=== PATIENT | male | born 1965 | race African-American/Black ===

== ENCOUNTER 2019-09-10 10:35 | Outpatient (CLI) | payer OTHER ==
--- NOTE | 2019-09-10 11:00 | RAD ---
CERVICAL SPINE 4 VIEWS: HISTORY: Neck pain. COMPARISON: Comparison is made to cervical spine films of 07/17/2019. FINDINGS: Postoperative changes are again noted with anterior plate and screws transfixing C3 and C4 with inter body implant. Hardware position is unchanged. Implant is unchanged in position. Posterior alignmen t is preserved. Degenerative spurring and disk narrowing at the C5-6 and C6-7 levels again noted. No interval change . IMPRESSION: Stable degenerative and [id number] changes of cervical spine. POS: AH
== END 2019-09-10 10:36 | disposition home or self-care (01) ==
LOC: TBSIIMAG 10:35
PROVIDERS: ATTEND Neurological Surgery
DX: M54.2 Cervicalgia (principal); M47.812 Spondylosis without myelopathy or radiculopathy, cervical region; Z98.890 Other specified postprocedural states
CPT/HCPCS: 72040

== ENCOUNTER 2019-09-24 05:19 | Emergency (ER) | payer SELFPAY | END 2019-09-24 06:35 | disposition home or self-care (01) | LOC: ERS 05:19 | DX: M96.830 Postprocedural hemorrhage of a musculoskeletal structure following a musculoskeletal system procedure (principal); E11.9 Type 2 diabetes mellitus without complications; I10 Essential (primary) hypertension; N40.0 Benign prostatic hyperplasia without lower urinary tract symptoms; Z79.899 Other long term (current) drug therapy; Z79.84 Long term (current) use of oral hypoglycemic drugs | CPT/HCPCS: 99283 ==

== ENCOUNTER 2020-02-04 13:00 | Outpatient (CLI) | payer OTHER ==
[~2020-02-04 13:00] MED LIST: Magnevist 469MG/ML 20 ML VIAL ONE
[2020-02-04 14:04] LABS: Estimated GFR-MDRD - POC Greater than 90
--- NOTE | 2020-02-04 15:20 | MRI ---
MRI Lumbar Spine with and without IVcontrast: HISTORY: Lumbar stenosis with claudication. History of prior lumbar surgery COMPARISON: 04/29/2011 FINDINGS: The visualized retroperitoneal structures demonstrate a normal appearance. Conus medullaris is normal in morphology and terminates at the L1 level. Posterior fusion hardware L4-5 level again noted. Hardware again limits assessment of the neural fora luna. There has been interval postoperative changes at the L1-2 level with evidence of laminectomy defect. There is now enhancing soft tissue density seen posterior to the central canal at level of laminectomy defect with an irregular lower signal intensity area seen just posterior to the thecal sa c on postcontrast T1-weighted images. This lower signal intensity area measures 3.9 cm craniocaudal x1.4 cm AP x1.6 cm transverse. While these findings could be related to recent postoperative changes, infection and phlegmon with developing abscess collection cannot be excluded based on this exam. L1-2: As noted above, there has been interval postoperative changes at this level. Trace anterolisthe sis of L1 on L2 is again noted and mild disc space narrowing persists. There is a disc osteophyte complex at this level. There is severe central canal narrowing, but the degree of central canal narro wing is slightly improved from prior study. There is mass effect on the posterior aspect of the thecal sac due to the enhancing soft tissue and lower signal intensity area posterior to the thecal s ac at the L1-2 level. Severe left and moderate to severe right-sided neural foraminal narrowing persists. L2-3: Mild disc osteophyte complex is present at this level. Facet hypertrophic changes are seen. Gen eralized mild narrowing of the central spinal canal is present due to congenitally short pedicles. No significant neural foraminal narrowing is present. L3-4: Facet hypertrophic changes are present with mild disc osteophyte complex. There is resultant mi ld bilateral neural foraminal narrowing. There is generalized mild narrowing of the central spinal canal. Findings are similar to prior exam. L4-5: Laminectomy defect is again present at this level. There are facet hypertrophic changes noted. Bilateral neural foraminal narrowing is present, but the degree of neural foraminal narrowing is difficult to assess due to metallic susceptibility artifact from pedicular screws at this level. Cent ral spinal canal is patent. L5-S1: Loss of intervertebral disc height. Laminectomy defect is present at this level. There are pro minent facet hypertrophic changes. Mild broad-based disc osteophyte complex is present. Central spinal canal and right neural foramen appear patent. There is left foraminal narrowing although the d egree of foraminal narrowing is difficult to assess due to susceptibility artifact from pedicular screws. IMPRESSION: 1. Interval postoperative changes at the L1-2 level with laminectomy defect present. Enhancing soft t issue is present posterior to the thecal sac in the region of the laminectomy defect at this level with an irregular low signal intensity area seen just posterior to the thecal sac surrounded by the e nhancing soft tissue. While these findings could be related to recent postoperative changes, infection and phlegmon with developing abscess collection cannot be excluded based on this exam. 2. Persistent central canal and bilateral neural foraminal narrowing is present at the L1-2 level wit h severe central canal narrowing as well as severe right and moderate to severe left-sided neural foraminal narrowing. 3. Postoperative and degenerative changes seen throughout the remainder of the lumbar spine similar t o prior study.
== END 2020-02-04 13:01 | disposition home or self-care (01) ==
LOC: BICMRI 13:00
PROVIDERS: ATTEND Neurological Surgery
DX: M48.062 Spinal stenosis, lumbar region with neurogenic claudication (principal); M47.816 Spondylosis without myelopathy or radiculopathy, lumbar region; R93.7 Abnormal findings on diagnostic imaging of other parts of musculoskeletal system; Z98.890 Other specified postprocedural states
CPT/HCPCS: 72158; 82565; A9579

== ENCOUNTER 2020-02-20 09:28 | Emergency (ER) | payer SELFPAY ==
[2020-02-20 12:37] LABS: SARS-CoV-2 MS2 Positive; SARS-CoV-2 N Gene Positive; SARS-CoV-2 S Gene Positive; SARS-CoV-2 by NAA DETECTED (NotDetected); SARS-CoV-2 orf1ab Positive
== END 2020-02-20 10:20 | disposition home or self-care (01) ==
LOC: ERS 09:28
DX: U07.1 COVID-19 (principal); J45.909 Unspecified asthma, uncomplicated; E11.9 Type 2 diabetes mellitus without complications; I10 Essential (primary) hypertension; N40.0 Benign prostatic hyperplasia without lower urinary tract symptoms
CPT/HCPCS: 87635; 87804; 99283; U0003

== ENCOUNTER 2020-02-21 21:25 | Inpatient (IN) | payer OTHER, SELFPAY ==
[~2020-02-21 21:25] MED LIST changes: +Iopamidol-370 76% 500 ML 1 ML ONE; -Magnevist 469MG/ML 20 ML VIAL ONE
[2020-02-21] MEDS ORDERED: Azithromycin 500 MG VIAL ONE (22:00)
[2020-02-21] MEDS ORDERED: cefTRIAXone\\ROCEPHIN 2 GM VIAL ONE (22:00)
[2020-02-21 22:35] LABS: #Monocytes 0.3 thou/uL (0.11-0.59); #Neutrophils 3.8 thou/uL (1.40-6.50); %Basophils 0.2 % (0.0-1.0); %Eosinophils 0.2 % (0.0-10.0); %Monocytes 5.3 % (0.0-10.0); %Neutrophils 62.4 % (42.0-75.0); Hemoglobin 13.7 g/dL (14.0-18.0); Mean Corpuscular HGB CONC 33.8 g/dL (32.0-36.0); Mean Corpuscular Hemoglobin 30.3 pg (27.0-31.0); Mean Corpuscular Volume 89.8 fL (78.0-98.0); Mean Platelet Volume 7.2 fL (7.4-10.4); Platelet Count 239 thou/uL (130-400); RBC Distribution Width 12.6 % (11.5-14.5); Red Blood Cell (RBC) Count 4.52 mill/uL (4.70-6.10); White Blood Cell (WBC) Count 6.1 thou/uL (4.8-10.8)
[2020-02-21 22:52] LABS: ALT (SGPT) 41 U/L (8-55); AST (SGOT) 43 U/L (5-34); Alkaline Phosphatase 106 U/L (40-110); Anion Gap 15 mmol/L (10-20); BUN (Urea Nitrogen) 33 mg/dL (8.4-25.7); Bilirubin, Total 0.5 mg/dL (0.2-1.2); CK (CPK) 731 U/L (30-200); Calc. Creatinine Clearance 0 mL/min (70-130); Calcium 8.1 mg/dL (7.8-10.44); Carbon Dioxide 31 mmol/L (22-29); Chloride 95 mmol/L (98-107); Globulin 3.7 g/dL (2.4-3.5); Glucose 100 mg/dL (70-105); Potassium 3.5 mmol/L (3.5-5.1); Protein, Total 7.7 g/dL (6.0-8.3); Sodium 137 mmol/L (136-145)
--- NOTE | 2020-02-21 23:10 | RAD ---
EXAM: CHEST ONE VIEW HISTORY: Fever and cough COMPARISON: 07/23/2019 FINDINGS: The cardiac silhouette and pulmonary vasculature are within normal limits. Patchy parenchymal opacity is seen in the region of the lingula suggesting pneumonia. The right lung is clear. No other interval change. IMPRESSION: Pneumonia in the region of the lingula. Follow-up to complete resolution is recommended.
--- NOTE | 2020-02-21 23:12 | RAD ---
Exam: XR Hip Lt 2-3 View HISTORY: Injury to left hip after a fall. COMPARISON: None FINDINGS: No displaced fracture or dislocation is appreciated. Postoperative changes of the limited visualized lower lumbar spine are seen. Bony lateral masses secondary to fusion changes lateral lumbosacral region are seen. IMPRESSION: No acute fracture is seen. If patient's pain persists or if there is strong clinical concern for a le ft hip fracture, MRI versus CT left hip can be performed to evaluate for radiographically occult fracture.
--- NOTE | 2020-02-21 23:33 | CT ---
CT ANGIOGRAM THORAX WITH IV CONTRAST AND 3-D RECONSTRUCTIONS CLINICAL INDICATION: Covid positive. Wheezing, fever, hypoxia. COMPARISON: None FINDINGS: Pulmonary arteries: No filling defects are seen in the pulmonary arteries to suggest a pulmonary embo ajit. Aorta: The aorta is normal in caliber without evidence of an aortic dissection. Lungs: There are scattered patchy peripherally located groundglass densities within the lungs bilater ally greater in the upper lobes. No pleural effusion is seen. A 4 mm noncalcified pulmonary nodule seen in the anterior aspect right upper lobe (image 36, series 3 ) (. There is mild dependent atelectasis. Large airways appear patent. Mediastinum: Mild increase in number of mediastinal lymph nodes which is nonspecific could be related to reactive lymphadenopathy. Thyroid gland: Partially obscured due to artifact. Osseous structures: No suspicious lytic or sclerotic osseous lesion. Chest wall: No abnormality visualized. Upper abdomen: The limited visualized upper abdomen is within normal limits for phase of imaging. IMPRESSION: 1. Covid pneumonia. 2. No CT evidence of a pulmonary embolus. 3. Nonspecific 4 mm pulmonary nodule right upper lobe.
[2020-02-22 02:15] LABS: #Lymphocytes 1.2 thou/uL (1.20-3.40); #Monocytes 0.2 thou/uL (0.11-0.59); %Basophils 0.8 % (0.0-1.0); %Eosinophils 0.2 % (0.0-10.0); %Lymphocytes 21.8 % (21.0-51.0); %Monocytes 3.5 % (0.0-10.0); %Neutrophils 73.6 % (42.0-75.0); Hemoglobin 11.6 g/dL (14.0-18.0); Mean Corpuscular HGB CONC 34.3 g/dL (32.0-36.0); Mean Corpuscular Hemoglobin 30.5 pg (27.0-31.0); Mean Corpuscular Volume 89.1 fL (78.0-98.0); Mean Platelet Volume 7.1 fL (7.4-10.4); Platelet Count 214 thou/uL (130-400); RBC Distribution Width 12.4 % (11.5-14.5); White Blood Cell (WBC) Count 5.4 thou/uL (4.8-10.8)
--- NOTE | 2020-02-22 02:28 | PDOC.HHP ---
Hospitalist HPI - History of Present Illness SOB History of Present Illness: This is a 55-year-old male patient with past medical history of asthma, diabetes mellitus, hypertension and BPH who presents with worsening shortness of breath for about a week. He drove by day ago and had a Covid test returned positive. He notes that he has a couple of relatives on admission on account of Covid. While at home he noticed worsening shortness of breath and cough and weakness. He denies any chest pain he notes having become so weak he fell down while he was going to the urinal. It is unclear whether he actually had a syncopal event. His niece activated EMS and was brought in here for further treatment. EMS noted saturation 88% on room air improved to above 95 on 3 L oxygen. Blood pressure was 123/78 with heart rate 79. At presentation He was afebrile saturating at 100% on 2 L oxygen. BP was 146 /85. Labs showed mild anemia of 13.7, creatinine of 3.02 with no baseline on file. Lactic acid was 1.9. Chest x-ray was concerning for pneumonia in the region of the lingula, follow-up CT noted patchy scattered groundglass densities within the lungs bilaterally concerning for Covid. No pulmonary embolism was noted. A 4 mm nonspecific pulmonary nodule was seen on the right upper lobe. X-ray of his left hip revealed no acute fracture. He was started on Decadron, azithromycin and ceftriaxone. Hospitalist team consulted to admit Hospitalist ROS - Review of Systems Constitutional: reports: weakness, malaise. denies: fever, chills, sweats Respiratory: reports: cough, shortness of breath, SOB with excertion. denies: hemoptysis Cardiovascular: denies: chest pain, palpitations, orthopnea, paroxysmal noc. dyspnea Gastrointestinal: denies: nausea, vomiting, abdominal pain, diarrhea Genitourinary: denies: dysuria, frequency, incontinence, hematuria Musculoskeletal: reports: other (Left hip pain). denies: neck pain, shoulder pain, arm pain, back pain, hand pain, leg pain, foot pain Skin: denies: rash, lesions Neurological: denies: weakness, numbness, incoordination, change in speech All other systems reviewed; all pertinent +/- noted in HPI/Subj - Medication Medications: Medications: Currently refer to ambulatory order list. Allergies: No known drug allergies. Hospitalist History - Past Medical History Other Medical History: Asthma, diabetes mellitus, hypertension, BPH - Past Surgical History Other Surgical History: Back surgery - Family History Family History: reports: no pertinent history - Social History Smoking Status: Never smoker Alcohol: reports: None Living Situation: With Family Activity level: independent ambulation - Exam General Appearance: awake alert General - other findings: Looks anxious Eye: PERRL, anicteric sclera ENT: normocephalic atraumatic Neck: supple, symmetric, no JVD Heart: RRR, no murmur, no gallops Respiratory: CTAB, no wheezes, no rales, no ronchi Gastrointestinal: soft, non-tender, non-distended, normal bowel sounds Extremities: no cyanosis, no clubbing, no edema Neurological: cranial nerve grossly intact, no weakness, no focal deficits Psychiatric: normal affect, normal behavior, A&O x 3 Hospitalist Results - Labs Result Diagrams: 02/22/20 02:00 02/21/20 22:09 Lab results: WBC 5.4 thou/uL (4.8-10.8) 02/22/20 02:00 Hgb 11.6 g/dL (14.0-18.0) L 02/22/20 02:00 Hct 33.9 % (42.0-52.0) L 02/22/20 02:00 MCV 89.1 fL (78.0-98.0) 02/22/20 02:00 Plt Count 214 thou/uL (130-400) 02/22/20 02:00 Neutrophils % 73.6 % (42.0-75.0) 02/22/20 02:00 Sodium 137 mmol/L (136-145) 02/21/20 22:09 Potassium 3.5 mmol/L (3.5-5.1) 02/21/20 22:09 Chloride 95 mmol/L (98-107) L 02/21/20 22:09 Carbon Dioxide 31 mmol/L (22-29) H 02/21/20 22:09 BUN 33 mg/dL (8.4-25.7) H 02/21/20 22:09 Creatinine 3.02 mg/dL (0.7-1.3) H 02/21/20 22:09 Glucose 100 mg/dL (70-105) 02/21/20 22:09 Lactic Acid 1.9 mmol/L (0.5-2.2) 02/21/20 22:09 Calcium 8.1 mg/dL (7.8-10.44) 02/21/20 22:09 Total Bilirubin 0.5 mg/dL (0.2-1.2) 02/21/20 22:09 AST 43 U/L (5-34) H 02/21/20 22:09 ALT 41 U/L (8-55) 02/21/20 22:09 Alkaline Phosphatase 106 U/L (40-110) 02/21/20 22:09 Creatine Kinase 731 U/L (30-200) H 02/21/20 22:09 Serum Total Protein 7.7 g/dL (6.0-8.3) 02/21/20 22:09 Albumin 4.0 g/dL (3.5-5.0) 02/21/20 22:09 Hospitalist H&P A/P - Plan Plan: This is a 55-year-old male patient history of asthma, diabetes mellitus who presents with worsening shortness of breath after testing positive for Covid a day ago. Acute hypoxic respiratory failure In the setting of Covid, possible COPD Continue oxygen therapy Pulmonary consult if deteriorates. Pneumonia due to Covid We will start steroids, antibiotics Check D-dimer CRP ferritin CanT have remdesivir if it were not function Plasma Continue close monitoring Possible committee acquired pneumonia Continue azithromycin and ceftriaxone for now CKD Possible JOSEFINA CKD No baseline values We will gently hydrate Check BMP in a.m. Nephrology consult if worsens. Diabetes mellitus Standard correctional insulin Glucose monitoring. Hypertension Home blood pressure medications once verified. VT prophylaxisHeparin CODE STATUSfull code
[2020-02-22] MEDS ORDERED: Sodium Chloride 0.9% 1,000 ML IV SCH (02:30)
[2020-02-22 02:43] LABS: Anion Gap 18 mmol/L (10-20); BUN (Urea Nitrogen) 27 mg/dL (8.4-25.7); Calc. Creatinine Clearance 0 mL/min (70-130); Calcium 6.9 mg/dL (7.8-10.44); Carbon Dioxide 25 mmol/L (22-29); Chloride 101 mmol/L (98-107); Glucose 92 mg/dL (70-105); Sodium 141 mmol/L (136-145)
[2020-02-22] MEDS ORDERED: Dextrose 5% in Water 1,000 ML IV PRN (02:51)
[2020-02-22] MEDS ORDERED: Dextrose 50% Abboject 50 ML SYRINGE SLOW IVP PRN (02:51)
[2020-02-22] MEDS ORDERED: Albuterol 200 PUFF (6.7GM INHALER) INH PRN (07:48)
[2020-02-22] MEDS ORDERED: Albuterol 200 PUFF (6.7GM INHALER) ONE (07:49)
[2020-02-22] MEDS ORDERED: Enoxaparin Sodium 40 MG/0.4 ML SYRINGE ONE (08:41)
[2020-02-22] MEDS ORDERED: Potassium Chloride 20 MEQ TAB PO SCH (09:00)
[2020-02-22] MEDS ORDERED: Dexamethasone 20 MG/5 ML VIAL SLOW IVP SCH (09:00)
[2020-02-22] MEDS ORDERED: Enoxaparin Sodium 40 MG/0.4 ML SYRINGE SC SCH (09:00)
[2020-02-22] MEDS: Sodium Chloride 0.9% 1,000 ML IV SCH ×2 (09:33→20:48)
[2020-02-22] MEDS ORDERED: Potassium Chloride 20 MEQ TAB ONE (09:36)
[2020-02-22] MEDS: Enoxaparin Sodium 30 MG/0.3 ML SYRINGE SC SCH ×2 (09:58→20:48)
[2020-02-22] MEDS: Ascorbic Acid 500 mg Chewable Tablet PO SCH (10:02)
[2020-02-22] MEDS: Cholecalciferol (Vitamin D3) 400 UNITS TAB PO SCH (10:02)
[2020-02-22] MEDS: Zinc Sulfate 220 MG CAP PO SCH (10:02)
[2020-02-22] MEDS ORDERED: HumaLOG 300 UNITS/3 ML VIAL ONE (10:09)
[2020-02-22] MEDS ORDERED: hydrALAZINE 20 MG/ML VIAL ONE ×2 (10:11→14:39)
[2020-02-22] MEDS: HumaLOG 300 UNITS/3 ML VIAL SC PRN (10:21)
[2020-02-22] MEDS: hydrALAZINE 20 MG/ML VIAL SLOW IVP PRN ×2 (10:26→14:44)
[2020-02-22] MEDS ORDERED: Acetaminophen 325 MG TAB PO PRN (12:49)
[2020-02-22] MEDS ORDERED: HYDROcodone/Acetaminophen 5/325 mg Tablet ONE (13:30)
[2020-02-22] MEDS: HYDROcodone/Acetaminophen 5/325 mg Tablet PO PRN ×3 (13:33→22:20)
--- NOTE | 2020-02-22 14:09 | PDOC.BPN ---
- Brief Progress Note Patient was seen examined at bedside. The patient is a pleasant 55 years old -[place] gentleman who has significant past medical histories of asthma, diabetes, hypertension, BPH, who presented to ED with complaint of short of breath for about 1 weeks. He was tested positive for Covid on February 20, 2020. Upon arrival, he was found hypoxic's. His oxygen improved with O2 supplements on 3 L. Patient had been started on Decadron and other supportive therapy. He is not a candidate for remdesivir due to his renal function. Convalescent plasma has been ordered. Continue to wean O2 as tolerated. We will change Lovenox to twice daily. Add vitamin C/D/Zinc.
[2020-02-22] MEDS: Albuterol 200 PUFF (6.7GM INHALER) INH SCH ×3 (17:35→20:48)
[2020-02-22 19:22] VITALS: BMI 38.0
[2020-02-22] MEDS: cefTRIAXone\\ROCEPHIN 1 GM in Sodium Chloride 0.9% 100 ML IVPB SCH (20:47)
[2020-02-22] MEDS: Azithromycin 500 MG in Sodium Chloride 0.9% 250 ML 250 ML IVPB SCH (22:12)
[2020-02-23] MEDS: Albuterol 200 PUFF (6.7GM INHALER) INH SCH ×6 (02:52→21:17)
[2020-02-23] MEDS: HYDROcodone/Acetaminophen 5/325 mg Tablet PO PRN ×2 (05:32→10:38)
[2020-02-23 07:09] LABS: #Lymphocytes 1.7 thou/uL (1.20-3.40); #Monocytes 0.3 thou/uL (0.11-0.59); #Neutrophils 6.9 thou/uL (1.40-6.50); %Basophils 0.2 % (0.0-1.0); %Eosinophils 0.2 % (0.0-10.0); %Lymphocytes 19.4 % (21.0-51.0); %Monocytes 3.4 % (0.0-10.0); %Neutrophils 76.7 % (42.0-75.0); Mean Corpuscular HGB CONC 33.1 g/dL (32.0-36.0); Mean Corpuscular Hemoglobin 29.4 pg (27.0-31.0); Mean Corpuscular Volume 88.9 fL (78.0-98.0); Mean Platelet Volume 7.5 fL (7.4-10.4); Platelet Count 253 thou/uL (130-400); RBC Distribution Width 12.4 % (11.5-14.5); Red Blood Cell (RBC) Count 4.42 mill/uL (4.70-6.10)
[2020-02-23 07:16] LABS: Anion Gap 11 mmol/L (10-20); BUN (Urea Nitrogen) 13 mg/dL (8.4-25.7); CRP (Inflammatory) 3.77 mg/dL (= or < 0.5); Calc. Creatinine Clearance 160 mL/min (70-130); Calcium 7.2 mg/dL (7.8-10.44); Carbon Dioxide 26 mmol/L (22-29); Chloride 104 mmol/L (98-107); Glucose 99 mg/dL (70-105); Potassium 2.9 mmol/L (3.5-5.1); Sodium 138 mmol/L (136-145)
[2020-02-23] MEDS ORDERED: Potassium Chloride 20 MEQ TAB PO SCH (07:45)
[2020-02-23] MEDS ORDERED: Potassium Chloride 40 MEQ in Sodium Chloride 0.9% 250 ML 250 ML IVPB SCH (08:00)
[2020-02-23] MEDS: Ascorbic Acid 500 mg Chewable Tablet PO SCH (08:23)
[2020-02-23] MEDS: Zinc Sulfate 220 MG CAP PO SCH (08:23)
[2020-02-23] MEDS: Enoxaparin Sodium 30 MG/0.3 ML SYRINGE SC SCH ×2 (08:23→20:05)
[2020-02-23] MEDS: Cholecalciferol (Vitamin D3) 400 UNITS TAB PO SCH (08:37)
[2020-02-23] MEDS: Sodium Chloride 0.9% 1,000 ML IV SCH (09:56)
[2020-02-23] MEDS ORDERED: Acetaminophen 500 MG TAB PO SCH (11:00)
--- NOTE | 2020-02-23 17:10 | PDOC.HOSPP ---
- Subjective Subjective: still having intermittent fever, feeling bad with nausea. sat still ok on room air. CRP is trending down - Objective Vital Signs & Weight: Vital Signs (12 hours) Temp Pulse Resp BP Pulse Ox 02/23/20 11:49 100.2 F H 02/23/20 11:19 101.3 F H 02/23/20 11:00 102.3 F H 112 H 20 147/83 H 96 02/23/20 08:00 100.1 F H 107 H 20 146/82 H 92 L Weight Weight 272 lb 7.861 oz I&O: 02/22/20 02/23/20 02/24/20 06:59 06:59 06:59 Intake Total 1000 0 Balance 1000 0 Result Diagrams: 02/23/20 06:22 02/23/20 06:22 Additional Labs: Accuchecks 02/23/20 02/23/20 02/23/20 16:06 11:06 05:38 POC Glucose 121 H 151 H 128 H 02/22/20 20:54 POC Glucose 133 H Hospitalist ROS - Medication Medications: Active Medications Generic Name Dose Route Start Last Admin Trade Name Freq PRN Reason Stop Dose Admin Hydrocodone Bitart/Acetaminophen 1 tab 02/22/20 12:49 02/23/20 10:38 Hydrocodone/Acetaminophen 5/325 Mg Tablet PO 1 tab Q4H PRN Administration Moderate to Severe Pain (6-10) Albuterol Sulfate 2 puff 02/22/20 10:30 02/23/20 14:15 Albuterol 200 Puff (6.7gm Inhaler) INH 2 puff [id number] ELIOT Administration Albuterol Sulfate 2 puff 02/22/20 07:48 02/22/20 08:01 Albuterol 200 Puff (6.7gm Inhaler) INH 2 puff Q4H PRN Administration SOB &/or Wheezing Ascorbic Acid 1,000 mg 02/22/20 09:00 02/23/20 08:23 Ascorbic Acid 500 Mg Chewable Tablet PO 1,000 mg DAILY ELIOT Administration Cholecalciferol 400 units 02/22/20 09:00 02/23/20 08:37 Cholecalciferol (Vitamin D3) 400 Units Tab PO 400 units DAILY ELIOT Administration Enoxaparin Sodium 30 mg 02/22/20 09:00 02/23/20 08:23 Enoxaparin Sodium 30 Mg/0.3 Ml Syringe SC 30 mg BID ELIOT Administration Hydralazine HCl 10 mg 02/22/20 09:59 02/22/20 14:44 Hydralazine 20 Mg/Ml Vial SLOW IVP 10 mg Q4H PRN Administration Persistent BP Elevations Dexamethasone 8 mg/ Sodium 50.8 mls @ 101.6 mls/hr 02/22/20 09:00 02/22/20 09:18 Chloride IVPB 50.8 mls DAILY ELIOT Administration Ceftriaxone Sodium 1 gm/ 100 mls @ 200 mls/hr 02/22/20 20:00 02/22/20 20:47 Sodium Chloride IVPB 100 mls Q24HR ELIOT Administration Azithromycin 500 mg/ Sodium 250 mls @ 250 mls/hr 02/22/20 21:00 02/22/20 22:12 Chloride IVPB 250 mls Q24HR ELIOT Administration Sodium Chloride 1,000 mls @ 75 mls/hr 02/22/20 08:48 02/23/20 09:56 Normal Saline 0.9% IV 1,000 mls .[id number] ELIOT Administration Insulin Human Lispro 0 units 02/22/20 02:51 02/22/20 10:21 Humalog 300 Units/3 Ml Vial SC 2 unit .MILD SLIDING SCALE PRN Administration Mild Correctional Scale Zinc Sulfate 220 mg 02/22/20 09:00 02/23/20 08:23 Zinc Sulfate 220 Mg Cap PO 220 mg DAILY ELIOT Administration - Exam General Appearance: NAD Eye: PERRL ENT: normocephalic atraumatic Neck: supple Heart: RRR Respiratory: rhonchi Gastrointestinal: soft, non-tender Extremities: no cyanosis Skin: normal turgor Neurological: cranial nerve grossly intact Musculoskeletal: normal tone Psychiatric: normal affect, normal behavior, A&O x 3 Hosp A/P - Plan This is a 55-year-old male patient history of HTN, dyslipidemia, diabetes who presented with worsening shortness of breath after testing positive for Covid a day ago prior to admission Acute hypoxic respiratory failure d/t COVID-19 PNA --cont supportive cares. O2 supplement --cont Decadron. Vit C/D/Zinc. s/p convalescent plasma COVID-19 Pneumonia --cont empiric IV abx. mgt as above DM2 --BG stable. Hold metformin for now d/t renal function and in case contrast study is needed --cont ISS Dyslipidemia --cont statin HTN, essential --resume Norvasc/HCTZ Hypokalemia --replaced JOSEFINA - resolved --renal function normalized with IVF DVT ppx: Lovenox sq BID GI ppx: PPI Code Status: Full Anticipated Dispo: Home when medically stable.
[2020-02-23] MEDS: Ondansetron PF 4 MG/2 ML Vial IVP PRN (17:33)
[2020-02-23] MEDS: Ibuprofen 600 MG TAB PO PRN (18:01)
[2020-02-23] MEDS: Gabapentin 300 MG CAP PO SCH (20:04)
[2020-02-23] MEDS: cefTRIAXone\\ROCEPHIN 1 GM in Sodium Chloride 0.9% 100 ML IVPB SCH (20:04)
[2020-02-23] MEDS: Zolpidem Tartrate 5 MG TAB PO SCH (20:05)
[2020-02-23] MEDS: Acetaminophen 325 MG TAB PO PRN (20:05)
[2020-02-23] MEDS: Azithromycin 500 MG in Sodium Chloride 0.9% 250 ML 250 ML IVPB SCH (21:16)
[2020-02-24] MEDS: Sodium Chloride 0.9% 1,000 ML IV SCH ×2 (00:06→12:46)
[2020-02-24] MEDS: Albuterol 200 PUFF (6.7GM INHALER) INH SCH ×6 (03:20→22:28)
[2020-02-24] MEDS: Acetaminophen 325 MG TAB PO PRN ×3 (03:21→22:42)
[2020-02-24 07:33] LABS: Anion Gap 18 mmol/L (10-20); BUN (Urea Nitrogen) 12 mg/dL (8.4-25.7); Calc. Creatinine Clearance 159 mL/min (70-130); Calcium 8.4 mg/dL (7.8-10.44); Carbon Dioxide 21 mmol/L (22-29); Chloride 103 mmol/L (98-107); Glucose 127 mg/dL (70-105); Magnesium 1.8 mg/dL (1.6-2.6); Potassium 4.8 mmol/L (3.5-5.1); Sodium 137 mmol/L (136-145)
[2020-02-24] MEDS: Finasteride 5 MG TAB PO SCH (08:44)
[2020-02-24] MEDS: Hydrochlorothiazide 25 MG TAB PO SCH (08:44)
[2020-02-24] MEDS: Ascorbic Acid 500 mg Chewable Tablet PO SCH (08:44)
[2020-02-24] MEDS: Gabapentin 300 MG CAP PO SCH ×3 (08:44→20:49)
[2020-02-24] MEDS: Amlodipine 10 MG TAB PO SCH (08:46)
[2020-02-24] MEDS: Enoxaparin Sodium 30 MG/0.3 ML SYRINGE SC SCH ×2 (08:46→20:55)
[2020-02-24] MEDS: HYDROcodone/Acetaminophen 5/325 mg Tablet PO PRN (08:47)
[2020-02-24] MEDS: Cholecalciferol (Vitamin D3) 400 UNITS TAB PO SCH (08:49)
[2020-02-24 08:51] LABS: #Lymphocytes 0.8 thou/uL (1.20-3.40); #Monocytes 0.3 thou/uL (0.11-0.59); #Neutrophils 6.7 thou/uL (1.40-6.50); %Eosinophils 0.1 % (0.0-10.0); %Lymphocytes 9.7 % (21.0-51.0); %Neutrophils 86.2 % (42.0-75.0); Hemoglobin 14.1 g/dL (14.0-18.0); Mean Corpuscular HGB CONC 32.6 g/dL (32.0-36.0); Mean Corpuscular Hemoglobin 28.9 pg (27.0-31.0); Mean Corpuscular Volume 88.7 fL (78.0-98.0); Mean Platelet Volume 7.3 fL (7.4-10.4); Platelet Count 252 thou/uL (130-400); RBC Distribution Width 12.6 % (11.5-14.5); Red Blood Cell (RBC) Count 4.88 mill/uL (4.70-6.10); White Blood Cell (WBC) Count 7.8 thou/uL (4.8-10.8)
[2020-02-24] MEDS: Zinc Sulfate 220 MG CAP PO SCH (09:03)
[2020-02-24] MEDS: Ondansetron PF 4 MG/2 ML Vial IVP PRN ×3 (09:05→22:41)
[2020-02-24] MEDS ORDERED: clonazePAM 0.5 MG TAB PO PRN (10:49)
--- NOTE | 2020-02-24 17:57 | PDOC.HOSPP ---
- Subjective Subjective: still having fever. not feeling well. current wean down to room air - Objective Vital Signs & Weight: Vital Signs (12 hours) Temp Pulse Resp BP BP Pulse Ox 02/24/20 16:16 102.9 F H 02/24/20 16:02 102.9 F H 124 H 18 143/81 H 95 02/24/20 11:57 99.6 F 102 H 16 142/99 H 96 02/24/20 08:46 89 134/83 02/24/20 08:00 99 02/24/20 07:55 99.1 F 89 16 134/83 99 Weight Weight 272 lb 7.861 oz Most Recent Monitor Data Heart Rate from ECG 101 NIBP 162/102 I&O: 02/23/20 02/24/20 02/25/20 06:59 06:59 06:59 Intake Total 1000 1090 Balance 1000 1090 Result Diagrams: 02/24/20 08:37 02/24/20 06:21 Additional Labs: Accuchecks 02/24/20 02/24/20 02/24/20 15:56 11:51 04:33 POC Glucose 131 H 114 H 134 H 02/23/20 20:11 POC Glucose 204 H Radiology Reviewed by me: Yes EKG Reviewed by me: Yes Hospitalist ROS - Medication Medications: Active Medications Generic Name Dose Route Start Last Admin Trade Name Freq PRN Reason Stop Dose Admin Acetaminophen 650 mg 02/23/20 10:54 02/24/20 16:16 Acetaminophen 325 Mg Tab PO 650 mg Q6H PRN Administration Mild-Moderate Pain (1-5) Hydrocodone Bitart/Acetaminophen 1 tab 02/22/20 12:49 02/24/20 08:47 Hydrocodone/Acetaminophen 5/325 Mg Tablet PO 1 tab Q4H PRN Administration Moderate to Severe Pain (6-10) Albuterol Sulfate 2 puff 02/22/20 10:30 02/24/20 14:16 Albuterol 200 Puff (6.7gm Inhaler) INH 2 puff [id number] ELIOT Administration Albuterol Sulfate 2 puff 02/22/20 07:48 02/22/20 08:01 Albuterol 200 Puff (6.7gm Inhaler) INH 2 puff Q4H PRN Administration SOB &/or Wheezing Amlodipine Besylate 10 mg 02/24/20 09:00 02/24/20 08:46 Amlodipine 10 Mg Tab PO 10 mg DAILY ELIOT Administration Ascorbic Acid 1,000 mg 02/22/20 09:00 02/24/20 08:44 Ascorbic Acid 500 Mg Chewable Tablet PO 1,000 mg DAILY ELIOT Administration Cholecalciferol 400 units 02/22/20 09:00 02/24/20 08:49 Cholecalciferol (Vitamin D3) 400 Units Tab PO 400 units DAILY ELIOT Administration Clonazepam 0.5 mg 02/24/20 10:49 02/24/20 12:46 Clonazepam 0.5 Mg Tab PO 0.5 mg BIDPRN PRN Administration Anxiety/Agitation Dexamethasone 8 mg 02/24/20 18:00 02/24/20 16:16 Dexamethasone 4 Mg/Ml Vial SLOW IVP 8 mg 1800 ELIOT Administration Enoxaparin Sodium 30 mg 02/22/20 09:00 02/24/20 08:46 Enoxaparin Sodium 30 Mg/0.3 Ml Syringe SC 30 mg BID ELIOT Administration Finasteride 5 mg 02/24/20 09:00 02/24/20 08:44 Finasteride 5 Mg Tab PO 5 mg DAILY ELIOT Administration Gabapentin 300 mg 02/23/20 21:00 02/24/20 16:15 Gabapentin 300 Mg Cap PO 300 mg TID ELIOT Administration Hydralazine HCl 10 mg 02/22/20 09:59 02/22/20 14:44 Hydralazine 20 Mg/Ml Vial SLOW IVP 10 mg Q4H PRN Administration Persistent BP Elevations Hydrochlorothiazide 12.5 mg 02/24/20 09:00 02/24/20 08:44 Hydrochlorothiazide 25 Mg Tab PO 12.5 mg DAILY ELIOT Administration Ceftriaxone Sodium 1 gm/ 100 mls @ 200 mls/hr 02/22/20 20:00 02/23/20 20:04 Sodium Chloride IVPB 100 mls Q24HR ELIOT Administration Azithromycin 500 mg/ Sodium 250 mls @ 250 mls/hr 02/22/20 21:00 02/23/20 21:16 Chloride IVPB 250 mls Q24HR ELIOT Administration Sodium Chloride 1,000 mls @ 75 mls/hr 02/22/20 08:48 02/24/20 12:46 Normal Saline 0.9% IV 1,000 mls .[id number] ELIOT Administration Ibuprofen 600 mg 02/23/20 10:58 01/04/21 18:01 Ibuprofen 600 Mg Tab PO 600 mg Q6H PRN Administration Fever > 101 Insulin Human Lispro 0 units 02/22/20 02:51 02/22/20 10:21 Humalog 300 Units/3 Ml Vial SC 2 unit .MILD SLIDING SCALE PRN Administration Mild Correctional Scale Ondansetron HCl 4 mg 02/23/20 16:44 02/24/20 17:32 Ondansetron Pf 4 Mg/2 Ml Vial IVP 4 mg Q6H PRN Administration Nausea/Vomiting Zinc Sulfate 220 mg 02/22/20 09:00 02/24/20 09:03 Zinc Sulfate 220 Mg Cap PO 220 mg DAILY ELIOT Administration Zolpidem Tartrate 10 mg 02/23/20 21:00 02/23/20 20:05 Zolpidem Tartrate 5 Mg Tab PO 10 mg HS ELIOT Administration - Exam General Appearance: NAD Eye: PERRL ENT: normocephalic atraumatic Neck: supple Heart: RRR, no murmur Respiratory: rhonchi Gastrointestinal: soft Extremities: no cyanosis Skin: normal turgor Neurological: cranial nerve grossly intact Musculoskeletal: normal tone Hosp A/P - Plan This is a 55-year-old male patient history of HTN, dyslipidemia, diabetes who presented with worsening shortness of breath after testing positive for Covid a day ago prior to admission Acute hypoxic respiratory failure d/t COVID-19 PNA --cont supportive cares. O2 supplement --cont Decadron. Vit C/D/Zinc. s/p convalescent plasma --cont empiric IV abx COVID-19 Pneumonia --cont empiric IV abx. mgt as above DM2 --BG stable. Hold metformin for now d/t renal function and in case contrast study is needed --cont ISS Dyslipidemia --cont statin HTN, essential --resume Norvasc/HCTZ Hypokalemia --replaced JOSEFINA - resolved --renal function normalized with IVF DVT ppx: Lovenox sq BID GI ppx: PPI Code Status: Full Anticipated Dispo: Home when medically stable.
[2020-02-24] MEDS ORDERED: Dexamethasone 4 mg/ml Vial SLOW IVP SCH (18:00)
[2020-02-24] MEDS: cefTRIAXone\\ROCEPHIN 1 GM in Sodium Chloride 0.9% 100 ML IVPB SCH (20:46)
[2020-02-24] MEDS: Zolpidem Tartrate 5 MG TAB PO SCH (20:48)
[2020-02-24] MEDS: Dexamethasone 4 mg/ml Vial SLOW IVP SCH (20:48)
[2020-02-24] MEDS: Atorvastatin Calcium 20 MG TAB PO SCH (20:48)
[2020-02-24] MEDS: Azithromycin 500 MG in Sodium Chloride 0.9% 250 ML 250 ML IVPB SCH (22:28)
[2020-02-25] MEDS: Albuterol 200 PUFF (6.7GM INHALER) INH SCH ×6 (02:57→22:01)
[2020-02-25] MEDS: Sodium Chloride 0.9% 1,000 ML IV SCH (02:57)
[2020-02-25] MEDS: HumaLOG 300 UNITS/3 ML VIAL SC PRN ×3 (06:09→16:37)
[2020-02-25] MEDS: Acetaminophen 325 MG TAB PO PRN (06:15)
[2020-02-25 06:33] LABS: #Lymphocytes 0.7 thou/uL (1.20-3.40); #Monocytes 0.3 thou/uL (0.11-0.59); #Neutrophils 7.2 thou/uL (1.40-6.50); %Basophils 0.3 % (0.0-1.0); %Lymphocytes 8.2 % (21.0-51.0); %Neutrophils 87.5 % (42.0-75.0); Hemoglobin 14.3 g/dL (14.0-18.0); Mean Corpuscular HGB CONC 33.7 g/dL (32.0-36.0); Mean Corpuscular Hemoglobin 29.9 pg (27.0-31.0); Mean Corpuscular Volume 88.7 fL (78.0-98.0); Mean Platelet Volume 7.7 fL (7.4-10.4); Platelet Count 242 thou/uL (130-400); RBC Distribution Width 12.8 % (11.5-14.5); Red Blood Cell (RBC) Count 4.77 mill/uL (4.70-6.10); White Blood Cell (WBC) Count 8.2 thou/uL (4.8-10.8)
[2020-02-25 07:00] LABS: Anion Gap 18 mmol/L (10-20); BUN (Urea Nitrogen) 14 mg/dL (8.4-25.7); Calc. Creatinine Clearance 142 mL/min (70-130); Calcium 8.6 mg/dL (7.8-10.44); Carbon Dioxide 20 mmol/L (22-29); Chloride 101 mmol/L (98-107); Glucose 158 mg/dL (70-105); Potassium 4.4 mmol/L (3.5-5.1); Sodium 135 mmol/L (136-145)
[2020-02-25] MEDS: Cholecalciferol (Vitamin D3) 400 UNITS TAB PO SCH (09:50)
[2020-02-25] MEDS: Hydrochlorothiazide 25 MG TAB PO SCH (09:50)
[2020-02-25] MEDS: Enoxaparin Sodium 30 MG/0.3 ML SYRINGE SC SCH ×2 (09:50→20:44)
[2020-02-25] MEDS: Ascorbic Acid 500 mg Chewable Tablet PO SCH (09:51)
[2020-02-25] MEDS: Amlodipine 10 MG TAB PO SCH (09:51)
[2020-02-25] MEDS: Finasteride 5 MG TAB PO SCH (09:51)
[2020-02-25] MEDS: Gabapentin 300 MG CAP PO SCH ×3 (09:51→20:39)
[2020-02-25] MEDS: Dexamethasone 4 mg/ml Vial SLOW IVP SCH ×2 (09:52→20:38)
[2020-02-25] MEDS: Zinc Sulfate 220 MG CAP PO SCH (09:52)
[2020-02-25] MEDS: HYDROcodone/Acetaminophen 5/325 mg Tablet PO PRN ×2 (13:01→19:14)
[2020-02-25] MEDS ORDERED: Lorazepam 1 MG TAB PO SCH (14:30)
--- NOTE | 2020-02-25 17:25 | PDOC.HOSPP ---
- Subjective Subjective: still feeling bad. sob with exertion. CRP is still trending up. Oxygen wean off to room air - Objective Vital Signs & Weight: Vital Signs (12 hours) Temp Pulse Resp BP Pulse Ox 02/25/20 08:00 97 02/25/20 07:59 99.0 F 99 15 132/89 97 02/25/20 06:27 99 F Weight Weight 272 lb 7.861 oz Most Recent Monitor Data Heart Rate from ECG 101 NIBP 162/102 I&O: 02/24/20 02/25/20 02/26/20 06:59 06:59 06:59 Intake Total 1090 Balance 1090 Result Diagrams: 02/25/20 06:24 02/25/20 06:24 Additional Labs: Accuchecks 02/25/20 02/25/20 02/25/20 15:26 11:49 06:11 POC Glucose 199 H 167 H 158 H 02/24/20 20:41 POC Glucose 182 H Radiology Reviewed by me: Yes EKG Reviewed by me: Yes Hospitalist ROS - Medication Medications: Active Medications Generic Name Dose Route Start Last Admin Trade Name Freq PRN Reason Stop Dose Admin Acetaminophen 650 mg 02/23/20 10:54 02/25/20 06:15 Acetaminophen 325 Mg Tab PO 650 mg Q6H PRN Administration Mild-Moderate Pain (1-5) Hydrocodone Bitart/Acetaminophen 1 tab 02/22/20 12:49 02/25/20 13:01 Hydrocodone/Acetaminophen 5/325 Mg Tablet PO 1 tab Q4H PRN Administration Moderate to Severe Pain (6-10) Albuterol Sulfate 2 puff 02/22/20 10:30 02/25/20 14:27 Albuterol 200 Puff (6.7gm Inhaler) INH 2 puff [id number] ELIOT Administration Albuterol Sulfate 2 puff 02/22/20 07:48 02/22/20 08:01 Albuterol 200 Puff (6.7gm Inhaler) INH 2 puff Q4H PRN Administration SOB &/or Wheezing Amlodipine Besylate 10 mg 02/24/20 09:00 02/25/20 09:51 Amlodipine 10 Mg Tab PO 10 mg DAILY ELIOT Administration Ascorbic Acid 1,000 mg 02/22/20 09:00 02/25/20 09:51 Ascorbic Acid 500 Mg Chewable Tablet PO 1,000 mg DAILY ELIOT Administration Atorvastatin Calcium 20 mg 02/24/20 21:00 02/24/20 20:48 Atorvastatin Calcium 20 Mg Tab PO 20 mg HS ELIOT Administration Cholecalciferol 400 units 02/22/20 09:00 02/25/20 09:50 Cholecalciferol (Vitamin D3) 400 Units Tab PO 400 units DAILY ELIOT Administration Clonazepam 0.5 mg 02/24/20 10:49 02/24/20 12:46 Clonazepam 0.5 Mg Tab PO 0.5 mg BIDPRN PRN Administration Anxiety/Agitation Dexamethasone 6 mg 02/24/20 21:00 02/25/20 09:52 Dexamethasone 4 Mg/Ml Vial SLOW IVP 6 mg BID ELIOT Administration Enoxaparin Sodium 30 mg 02/22/20 09:00 02/25/20 09:50 Enoxaparin Sodium 30 Mg/0.3 Ml Syringe SC 30 mg BID ELIOT Administration Finasteride 5 mg 02/24/20 09:00 02/25/20 09:51 Finasteride 5 Mg Tab PO 5 mg DAILY ELIOT Administration Gabapentin 300 mg 02/23/20 21:00 02/25/20 14:23 Gabapentin 300 Mg Cap PO 300 mg TID ELIOT Administration Hydralazine HCl 10 mg 02/22/20 09:59 02/22/20 14:44 Hydralazine 20 Mg/Ml Vial SLOW IVP 10 mg Q4H PRN Administration Persistent BP Elevations Hydrochlorothiazide 12.5 mg 02/24/20 09:00 02/25/20 09:50 Hydrochlorothiazide 25 Mg Tab PO 12.5 mg DAILY ELIOT Administration Ceftriaxone Sodium 1 gm/ 100 mls @ 200 mls/hr 02/22/20 20:00 02/24/20 20:46 Sodium Chloride IVPB 100 mls Q24HR ELIOT Administration Azithromycin 500 mg/ Sodium 250 mls @ 250 mls/hr 02/22/20 21:00 02/24/20 22:28 Chloride IVPB 250 mls Q24HR ELIOT Administration Ibuprofen 600 mg 02/23/20 10:58 02/23/20 18:01 Ibuprofen 600 Mg Tab PO 600 mg Q6H PRN Administration Fever > 101 Insulin Human Lispro 0 units 02/22/20 02:51 02/25/20 16:37 Humalog 300 Units/3 Ml Vial SC 2 unit .MILD SLIDING SCALE PRN Administration Mild Correctional Scale Ondansetron HCl 4 mg 02/23/20 16:44 02/24/20 22:41 Ondansetron Pf 4 Mg/2 Ml Vial IVP 4 mg Q6H PRN Administration Nausea/Vomiting Zinc Sulfate 220 mg 02/22/20 09:00 02/25/20 09:52 Zinc Sulfate 220 Mg Cap PO Not Given DAILY ELIOT Zolpidem Tartrate 10 mg 02/23/20 21:00 02/24/20 20:48 Zolpidem Tartrate 5 Mg Tab PO 10 mg HS ELIOT Administration - Exam General Appearance: NAD Eye: PERRL ENT: normocephalic atraumatic Neck: supple Heart: RRR Respiratory: CTAB Gastrointestinal: soft, non-tender Extremities: no cyanosis Skin: normal turgor Neurological: cranial nerve grossly intact Musculoskeletal: normal tone Psychiatric: normal affect, normal behavior, A&O x 3 Hosp A/P - Plan This is a 55-year-old male patient history of HTN, dyslipidemia, diabetes who presented with worsening shortness of breath after testing positive for Covid a day ago prior to admission Acute hypoxic respiratory failure d/t COVID-19 PNA --cont supportive cares. O2 supplement --cont Decadron. Vit C/D/Zinc. s/p convalescent plasma --cont empiric IV abx. Follow anti-inflammatory marker COVID-19 Pneumonia --cont empiric IV abx. mgt as above DM2 --BG stable. Hold metformin for now d/t renal function and in case contrast kaitlyn dy is needed --cont ISS Dyslipidemia --cont statin HTN, essential --resume Norvasc/HCTZ Hypokalemia --replaced JOSEFINA - resolved --renal function normalized with IVF DVT ppx: Lovenox sq BID GI ppx: PPI Code Status: Full Anticipated Dispo: Home when medically stable.
[2020-02-25] MEDS: cefTRIAXone\\ROCEPHIN 1 GM in Sodium Chloride 0.9% 100 ML IVPB SCH (19:13)
[2020-02-25] MEDS: Atorvastatin Calcium 20 MG TAB PO SCH (20:38)
[2020-02-25] MEDS: Zolpidem Tartrate 5 MG TAB PO SCH (20:38)
[2020-02-25] MEDS: Azithromycin 500 MG in Sodium Chloride 0.9% 250 ML 250 ML IVPB SCH (20:39)
[2020-02-26] MEDS: Albuterol 200 PUFF (6.7GM INHALER) INH SCH ×6 (03:37→21:12)
[2020-02-26 06:38] LABS: #Monocytes 0.7 thou/uL (0.11-0.59); #Neutrophils 10.5 thou/uL (1.40-6.50); %Basophils 0.3 % (0.0-1.0); %Eosinophils 0.1 % (0.0-10.0); %Lymphocytes 7.9 % (21.0-51.0); %Monocytes 5.6 % (0.0-10.0); %Neutrophils 86.2 % (42.0-75.0); Hemoglobin 13.6 g/dL (14.0-18.0); Mean Corpuscular HGB CONC 32.9 g/dL (32.0-36.0); Mean Corpuscular Hemoglobin 29.1 pg (27.0-31.0); Mean Corpuscular Volume 88.5 fL (78.0-98.0); Mean Platelet Volume 8.1 fL (7.4-10.4); Platelet Count 331 thou/uL (130-400); RBC Distribution Width 12.6 % (11.5-14.5); Red Blood Cell (RBC) Count 4.66 mill/uL (4.70-6.10); White Blood Cell (WBC) Count 12.2 thou/uL (4.8-10.8)
[2020-02-26 06:47] LABS: Anion Gap 16 mmol/L (10-20); BUN (Urea Nitrogen) 16 mg/dL (8.4-25.7); CRP (Inflammatory) 10.01 mg/dL (= or < 0.5); Calc. Creatinine Clearance 143 mL/min (70-130); Calcium 8.7 mg/dL (7.8-10.44); Carbon Dioxide 23 mmol/L (22-29); Chloride 98 mmol/L (98-107); Glucose 135 mg/dL (70-105); Potassium 4.3 mmol/L (3.5-5.1); Sodium 133 mmol/L (136-145)
[2020-02-26] MEDS: Ascorbic Acid 500 mg Chewable Tablet PO SCH (08:14)
[2020-02-26] MEDS: Zinc Sulfate 220 MG CAP PO SCH (08:14)
[2020-02-26] MEDS: Amlodipine 10 MG TAB PO SCH (08:14)
[2020-02-26] MEDS: Gabapentin 300 MG CAP PO SCH ×3 (08:14→21:11)
[2020-02-26] MEDS: Finasteride 5 MG TAB PO SCH (08:14)
[2020-02-26] MEDS: Enoxaparin Sodium 30 MG/0.3 ML SYRINGE SC SCH (08:15)
[2020-02-26] MEDS: Dexamethasone 4 mg/ml Vial SLOW IVP SCH ×2 (08:15→21:12)
[2020-02-26] MEDS: Cholecalciferol (Vitamin D3) 400 UNITS TAB PO SCH (08:15)
[2020-02-26] MEDS: Hydrochlorothiazide 25 MG TAB PO SCH (08:15)
[2020-02-26] MEDS ORDERED: Ondansetron PF 4 MG/2 ML Vial IVP SCH (09:45)
[2020-02-26] MEDS: Lorazepam 0.5 MG TAB PO PRN (17:00)
[2020-02-26] MEDS: Ibuprofen 600 MG TAB PO PRN (17:00)
--- NOTE | 2020-02-26 17:05 | PDOC.HOSPP ---
- Subjective Subjective: Pt has multiple complaints. headache, nausea, restless. His sat currently 90 on room air. no fever. CRP is now trending down. - Objective Vital Signs & Weight: Vital Signs (12 hours) Temp Pulse Resp BP BP BP Pulse Ox 02/26/20 08:14 107 H 110/73 02/26/20 08:00 92 L 02/26/20 07:42 98.6 F 121 H 24 H 127/89 91 L 02/26/20 05:50 99.1 F 104 H 20 151/79 H 92 L Weight Weight 272 lb 7.861 oz Most Recent Monitor Data Heart Rate from ECG 101 NIBP 162/102 Result Diagrams: 02/26/20 05:42 02/26/20 05:42 Additional Labs: Accuchecks 02/26/20 02/25/20 05:59 21:07 POC Glucose 149 H 193 H Radiology Reviewed by me: Yes Hospitalist ROS - Medication Medications: Active Medications Generic Name Dose Route Start Last Admin Trade Name Freq PRN Reason Stop Dose Admin Acetaminophen 650 mg 02/23/20 10:54 02/25/20 06:15 Acetaminophen 325 Mg Tab PO 650 mg Q6H PRN Administration Mild-Moderate Pain (1-5) Hydrocodone Bitart/Acetaminophen 1 tab 02/22/20 12:49 02/25/20 19:14 Hydrocodone/Acetaminophen 5/325 Mg Tablet PO 1 tab Q4H PRN Administration Moderate to Severe Pain (6-10) Albuterol Sulfate 2 puff 02/22/20 10:30 02/26/20 17:00 Albuterol 200 Puff (6.7gm Inhaler) INH 2 puff [id number] ELIOT Administration Albuterol Sulfate 2 puff 02/22/20 07:48 02/22/20 08:01 Albuterol 200 Puff (6.7gm Inhaler) INH 2 puff Q4H PRN Administration SOB &/or Wheezing Amlodipine Besylate 10 mg 02/24/20 09:00 02/26/20 08:14 Amlodipine 10 Mg Tab PO 10 mg DAILY ELIOT Administration Ascorbic Acid 1,000 mg 02/22/20 09:00 02/26/20 08:14 Ascorbic Acid 500 Mg Chewable Tablet PO 1,000 mg DAILY ELIOT Administration Atorvastatin Calcium 20 mg 02/24/20 21:00 02/25/20 20:38 Atorvastatin Calcium 20 Mg Tab PO 20 mg HS ELIOT Administration Cholecalciferol 400 units 02/22/20 09:00 02/26/20 08:15 Cholecalciferol (Vitamin D3) 400 Units Tab PO 400 units DAILY ELIOT Administration Dexamethasone 6 mg 02/24/20 21:00 02/26/20 08:15 Dexamethasone 4 Mg/Ml Vial SLOW IVP 6 mg BID ELIOT Administration Finasteride 5 mg 02/24/20 09:00 02/26/20 08:14 Finasteride 5 Mg Tab PO 5 mg DAILY ELIOT Administration Gabapentin 300 mg 02/23/20 21:00 02/26/20 15:15 Gabapentin 300 Mg Cap PO 300 mg TID ELIOT Administration Hydralazine HCl 10 mg 02/22/20 09:59 02/22/20 14:44 Hydralazine 20 Mg/Ml Vial SLOW IVP 10 mg Q4H PRN Administration Persistent BP Elevations Hydrochlorothiazide 12.5 mg 02/24/20 09:00 02/26/20 08:15 Hydrochlorothiazide 25 Mg Tab PO 12.5 mg DAILY ELIOT Administration Ibuprofen 600 mg 02/23/20 10:58 02/26/20 17:00 Ibuprofen 600 Mg Tab PO 600 mg Q6H PRN Administration Fever > 101 Insulin Human Lispro 0 units 02/22/20 02:51 02/25/20 16:37 Humalog 300 Units/3 Ml Vial SC 2 unit .MILD SLIDING SCALE PRN Administration Mild Correctional Scale Lorazepam 0.5 mg 02/26/20 09:39 02/26/20 17:00 Lorazepam 0.5 Mg Tab PO 0.5 mg Q4H PRN Administration Anxiety Ondansetron HCl 4 mg 02/23/20 16:44 02/24/20 22:41 Ondansetron Pf 4 Mg/2 Ml Vial IVP 4 mg Q6H PRN Administration Nausea/Vomiting Zinc Sulfate 220 mg 02/22/20 09:00 02/26/20 08:14 Zinc Sulfate 220 Mg Cap PO 220 mg DAILY ELIOT Administration Zolpidem Tartrate 10 mg 02/23/20 21:00 02/25/20 20:38 Zolpidem Tartrate 5 Mg Tab PO 10 mg HS ELIOT Administration - Exam General Appearance: NAD Eye: PERRL ENT: normocephalic atraumatic Neck: supple Heart: RRR, no murmur Respiratory: CTAB, no wheezes Gastrointestinal: soft, non-tender Extremities: no cyanosis, no clubbing, no edema Skin: normal turgor Neurological: cranial nerve grossly intact Musculoskeletal: normal tone Psychiatric: normal affect, normal behavior, A&O x 3 Hosp A/P - Plan This is a 55-year-old male patient history of HTN, dyslipidemia, diabetes who presented with worsening shortness of breath after testing positive for Covid a day ago prior to admission Acute hypoxic respiratory failure d/t COVID-19 PNA --cont supportive cares. O2 supplement --cont Decadron. Vit C/D/Zinc. s/p convalescent plasma --D/C IV abx. Marker starts to trend down. Slightly tachycardic. cont Lovenox BID for DVT ppx COVID-19 Pneumonia --cont empiric IV abx. mgt as above DM2 --BG stable. Hold metformin for now d/t renal function and in case contrast study is needed --cont ISS Dyslipidemia --cont statin HTN, essential --resume Norvasc/HCTZ Hypokalemia --replaced JOSEFINA - resolved --renal function normalized with IVF DVT ppx: Lovenox sq BID GI ppx: PPI Code Status: Full Anticipated Dispo: Home when medically stable.
[2020-02-26] MEDS: Enoxaparin Sodium 40 MG/0.4 ML SYRINGE SC SCH (21:11)
[2020-02-26] MEDS: Zolpidem Tartrate 5 MG TAB PO SCH (21:12)
[2020-02-26] MEDS: Atorvastatin Calcium 20 MG TAB PO SCH (21:12)
[2020-02-26] MEDS: Acetaminophen 325 MG TAB PO PRN (21:24)
[2020-02-27] MEDS: Albuterol 200 PUFF (6.7GM INHALER) INH SCH ×6 (03:00→20:24)
[2020-02-27 06:34] LABS: Hemoglobin 14.9 g/dL (14.0-18.0); Mean Corpuscular HGB CONC 33.4 g/dL (32.0-36.0); Mean Corpuscular Hemoglobin 29.5 pg (27.0-31.0); Mean Corpuscular Volume 88.5 fL (78.0-98.0); Mean Platelet Volume 7.3 fL (7.4-10.4); Platelet Count 369 thou/uL (130-400); RBC Distribution Width 12.6 % (11.5-14.5); Red Blood Cell (RBC) Count 5.05 mill/uL (4.70-6.10); White Blood Cell (WBC) Count 14.4 thou/uL (4.8-10.8)
[2020-02-27 06:44] LABS: Anion Gap 17 mmol/L (10-20); BUN (Urea Nitrogen) 20 mg/dL (8.4-25.7); CRP (Inflammatory) 16.67 mg/dL (= or < 0.5); Calc. Creatinine Clearance 160 mL/min (70-130); Calcium 8.9 mg/dL (7.8-10.44); Carbon Dioxide 24 mmol/L (22-29); Chloride 98 mmol/L (98-107); Glucose 165 mg/dL (70-105); Potassium 4.7 mmol/L (3.5-5.1); Sodium 134 mmol/L (136-145)
[2020-02-27 08:01] LABS: Band 14 % (5-11); Lymphocytes 7 % (21-51); MDiff Complete? YES; Monocytes 3 % (0-10); Neutrophil 76 % (42-75); Platelet Morphology Comment Appears Adequate; Polychromasia SLIGHT = 2-3 cells (100X) (0-2/hpf)
[2020-02-27] MEDS: Gabapentin 300 MG CAP PO SCH ×3 (08:16→20:23)
[2020-02-27] MEDS: Hydrochlorothiazide 25 MG TAB PO SCH (08:16)
[2020-02-27] MEDS: Enoxaparin Sodium 40 MG/0.4 ML SYRINGE SC SCH ×2 (08:16→20:22)
[2020-02-27] MEDS: Cholecalciferol (Vitamin D3) 400 UNITS TAB PO SCH (08:16)
[2020-02-27] MEDS: Amlodipine 10 MG TAB PO SCH (08:16)
[2020-02-27] MEDS: Finasteride 5 MG TAB PO SCH (08:16)
[2020-02-27] MEDS: Zinc Sulfate 220 MG CAP PO SCH (08:17)
[2020-02-27] MEDS: HYDROcodone/Acetaminophen 5/325 mg Tablet PO PRN (08:17)
[2020-02-27] MEDS: Dexamethasone 4 mg/ml Vial SLOW IVP SCH ×2 (08:17→20:24)
[2020-02-27] MEDS: Ascorbic Acid 500 mg Chewable Tablet PO SCH (08:17)
[2020-02-27] MEDS: Lorazepam 0.5 MG TAB PO PRN (13:49)
[2020-02-27] MEDS: Acetaminophen 325 MG TAB PO PRN ×2 (13:49→20:25)
[2020-02-27] MEDS: Ondansetron PF 4 MG/2 ML Vial IVP PRN (13:50)
--- NOTE | 2020-02-27 18:12 | PDOC.HOSPP ---
- Subjective Subjective: He is getting more hypoxic overnight and placed on 2 L. CRP continue to trend upward. Still very dyspneic with minimal exertion. - Objective Vital Signs & Weight: Vital Signs (12 hours) Temp Pulse Resp BP BP BP Pulse Ox 02/27/20 08:16 100 142/92 H 02/27/20 08:00 94 L 02/27/20 07:28 98.8 F 100 23 H 142/91 H 02/27/20 06:54 98.3 F 102 H 18 123/80 84 L Weight Weight 272 lb 7.861 oz Most Recent Monitor Data Heart Rate from ECG 101 NIBP 162/102 I&O: 02/26/20 02/27/20 02/28/20 06:59 06:59 06:59 Intake Total 650 Balance 650 Result Diagrams: 02/27/20 06:08 02/27/20 06:08 Additional Labs: Accuchecks 02/27/20 02/27/20 02/27/20 16:42 11:47 05:47 POC Glucose 224 H 178 H 172 H 02/26/20 02/26/20 16:44 11:27 POC Glucose 180 H 147 H Radiology Reviewed by me: Yes EKG Reviewed by me: Yes Hospitalist ROS - Medication Medications: Active Medications Generic Name Dose Route Start Last Admin Trade Name Freq PRN Reason Stop Dose Admin Acetaminophen 650 mg 02/23/20 10:54 02/27/20 13:49 Acetaminophen 325 Mg Tab PO 650 mg Q6H PRN Administration Mild-Moderate Pain (1-5) Hydrocodone Bitart/Acetaminophen 1 tab 02/22/20 12:49 02/27/20 08:17 Hydrocodone/Acetaminophen 5/325 Mg Tablet PO 1 tab Q4H PRN Administration Moderate to Severe Pain (6-10) Albuterol Sulfate 2 puff 02/22/20 10:30 02/27/20 17:28 Albuterol 200 Puff (6.7gm Inhaler) INH 2 puff [id number] ELIOT Administration Albuterol Sulfate 2 puff 02/22/20 07:48 02/22/20 08:01 Albuterol 200 Puff (6.7gm Inhaler) INH 2 puff Q4H PRN Administration SOB &/or Wheezing Amlodipine Besylate 10 mg 02/24/20 09:00 01/08/21 08:16 Amlodipine 10 Mg Tab PO 10 mg DAILY ELIOT Administration Ascorbic Acid 1,000 mg 02/22/20 09:00 02/27/20 08:17 Ascorbic Acid 500 Mg Chewable Tablet PO 1,000 mg DAILY ELIOT Administration Atorvastatin Calcium 20 mg 02/24/20 21:00 02/26/20 21:12 Atorvastatin Calcium 20 Mg Tab PO 20 mg HS ELIOT Administration Cholecalciferol 400 units 02/22/20 09:00 02/27/20 08:16 Cholecalciferol (Vitamin D3) 400 Units Tab PO 400 units DAILY ELIOT Administration Dexamethasone 6 mg 02/24/20 21:00 02/27/20 08:17 Dexamethasone 4 Mg/Ml Vial SLOW IVP 6 mg BID ELIOT Administration Enoxaparin Sodium 40 mg 02/26/20 21:00 02/27/20 08:16 Enoxaparin Sodium 40 Mg/0.4 Ml Syringe SC 40 mg BID ELIOT Administration Finasteride 5 mg 02/24/20 09:00 02/27/20 08:16 Finasteride 5 Mg Tab PO 5 mg DAILY ELIOT Administration Gabapentin 300 mg 02/23/20 21:00 02/27/20 13:49 Gabapentin 300 Mg Cap PO 300 mg TID ELIOT Administration Hydralazine HCl 10 mg 02/22/20 09:59 02/22/20 14:44 Hydralazine 20 Mg/Ml Vial SLOW IVP 10 mg Q4H PRN Administration Persistent BP Elevations Hydrochlorothiazide 12.5 mg 02/24/20 09:00 02/27/20 08:16 Hydrochlorothiazide 25 Mg Tab PO 12.5 mg DAILY ELIOT Administration Ibuprofen 600 mg 02/23/20 10:58 02/26/20 17:00 Ibuprofen 600 Mg Tab PO 600 mg Q6H PRN Administration Fever > 101 Insulin Human Lispro 0 units 02/22/20 02:51 02/25/20 16:37 Humalog 300 Units/3 Ml Vial SC 2 unit .MILD SLIDING SCALE PRN Administration Mild Correctional Scale Lorazepam 0.5 mg 02/26/20 09:39 02/27/20 13:49 Lorazepam 0.5 Mg Tab PO 0.5 mg Q4H PRN Administration Anxiety Ondansetron HCl 4 mg 02/23/20 16:44 02/27/20 13:50 Ondansetron Pf 4 Mg/2 Ml Vial IVP 4 mg Q6H PRN Administration Nausea/Vomiting Zinc Sulfate 220 mg 02/22/20 09:00 02/27/20 08:17 Zinc Sulfate 220 Mg Cap PO Not Given DAILY ELIOT Zolpidem Tartrate 10 mg 02/23/20 21:00 02/26/20 21:12 Zolpidem Tartrate 5 Mg Tab PO 10 mg HS ELIOT Administration - Exam General Appearance: NAD Eye: PERRL ENT: normocephalic atraumatic Neck: supple Heart: RRR Respiratory: CTAB, no wheezes Gastrointestinal: soft, non-tender Extremities: no cyanosis Skin: normal turgor Neurological: cranial nerve grossly intact, normal sensation to touch Hosp A/P - Plan This is a 55-year-old male patient history of HTN, dyslipidemia, diabetes who presented with worsening shortness of breath after testing positive for Covid a day ago prior to admission Acute hypoxic respiratory failure d/t COVID-19 PNA --cont supportive cares. O2 supplement --cont Decadron. Vit C/D/Zinc. s/p convalescent plasma --cont Lovenox BID for DVT ppx. Abx was discontinued --pt is not stable to discharge at this time, appears decompensated overnight. Will observe him over the weekend. COVID-19 Pneumonia --cont empiric IV abx. mgt as above DM2 --BG stable. Hold metformin for now d/t renal function and in case contrast study is needed --cont ISS Dyslipidemia --cont statin HTN, essential --resume Norvasc/HCTZ Hypokalemia --replaced JOSEFINA - resolved --renal function normalized with IVF DVT ppx: Lovenox sq BID GI ppx: PPI Code Status: Full Anticipated Dispo: Home when medically stable.
[2020-02-27] MEDS: Atorvastatin Calcium 20 MG TAB PO SCH (20:24)
[2020-02-27] MEDS: Zolpidem Tartrate 5 MG TAB PO SCH (20:24)
[2020-02-28] MEDS: HumaLOG 300 UNITS/3 ML VIAL SC PRN ×3 (05:10→17:50)
[2020-02-28] MEDS: Albuterol 200 PUFF (6.7GM INHALER) INH SCH ×6 (05:10→20:24)
[2020-02-28] MEDS: Enoxaparin Sodium 40 MG/0.4 ML SYRINGE SC SCH ×2 (08:27→20:20)
[2020-02-28] MEDS: Amlodipine 10 MG TAB PO SCH (08:28)
[2020-02-28] MEDS: Ascorbic Acid 500 mg Chewable Tablet PO SCH (08:28)
[2020-02-28] MEDS: Finasteride 5 MG TAB PO SCH (08:28)
[2020-02-28] MEDS: Hydrochlorothiazide 25 MG TAB PO SCH (08:28)
[2020-02-28] MEDS: Gabapentin 300 MG CAP PO SCH ×3 (08:28→20:21)
[2020-02-28] MEDS: Cholecalciferol (Vitamin D3) 400 UNITS TAB PO SCH (08:28)
[2020-02-28] MEDS: Zinc Sulfate 220 MG CAP PO SCH (08:28)
[2020-02-28] MEDS: Dexamethasone 4 mg/ml Vial SLOW IVP SCH ×2 (08:29→20:20)
[2020-02-28] MEDS: Ibuprofen 600 MG TAB PO PRN (08:31)
[2020-02-28] MEDS: Ondansetron PF 4 MG/2 ML Vial IVP PRN ×2 (08:31→17:50)
[2020-02-28 10:56] LABS: Hemoglobin 13.9 g/dL (14.0-18.0); Mean Corpuscular HGB CONC 33.7 g/dL (32.0-36.0); Mean Corpuscular Hemoglobin 30.1 pg (27.0-31.0); Mean Corpuscular Volume 89.4 fL (78.0-98.0); Mean Platelet Volume 7.8 fL (7.4-10.4); Platelet Count 405 thou/uL (130-400); RBC Distribution Width 12.4 % (11.5-14.5); Red Blood Cell (RBC) Count 4.62 mill/uL (4.70-6.10); White Blood Cell (WBC) Count 16.5 thou/uL (4.8-10.8)
[2020-02-28 11:03] LABS: Anion Gap 16 mmol/L (10-20); BUN (Urea Nitrogen) 18 mg/dL (8.4-25.7); CRP (Inflammatory) 11.06 mg/dL (= or < 0.5); Calc. Creatinine Clearance 170 mL/min (70-130); Calcium 8.6 mg/dL (7.8-10.44); Carbon Dioxide 21 mmol/L (22-29); Chloride 97 mmol/L (98-107); Glucose 227 mg/dL (70-105); Potassium 4.3 mmol/L (3.5-5.1); Sodium 130 mmol/L (136-145)
[2020-02-28 11:37] LABS: Band 5 % (5-11); Lymphocytes 5 % (21-51); MDiff Complete? YES; Monocytes 6 % (0-10); Neutrophil 84 % (42-75); Platelet Morphology Comment Appears Adequate; RBC Morphology Normal
--- NOTE | 2020-02-28 15:08 | PDOC.HOSPP ---
- Subjective Encounter Date: 02/28/20 Encounter Time: 12:25 Subjective: is ambulating in room on nasal canula feels weak, no new symptoms - Objective Vital Signs & Weight: Vital Signs (12 hours) Temp Pulse Resp BP Pulse Ox 02/28/20 08:28 105 H 02/28/20 08:00 98.9 F 105 H 22 H 146/93 H 92 L 02/28/20 04:00 98.9 F 104 H 18 148/90 H 94 L Weight Weight 272 lb 7.861 oz Most Recent Monitor Data Heart Rate from ECG 101 NIBP 162/102 I&O: 02/27/20 02/28/20 02/29/20 06:59 06:59 06:59 Intake Total 650 Balance 650 Result Diagrams: 02/28/20 10:40 02/28/20 10:40 Additional Labs: Accuchecks 02/28/20 02/27/20 02/27/20 04:54 20:51 16:42 POC Glucose 224 H 204 H 224 H Hospitalist ROS - Medication Medications: Active Medications Generic Name Dose Route Start Last Admin Trade Name Freq PRN Reason Stop Dose Admin Acetaminophen 650 mg 02/23/20 10:54 02/27/20 20:25 Acetaminophen 325 Mg Tab PO 650 mg Q6H PRN Administration Mild-Moderate Pain (1-5) Hydrocodone Bitart/Acetaminophen 1 tab 02/22/20 12:49 02/27/20 08:17 Hydrocodone/Acetaminophen 5/325 Mg Tablet PO 1 tab Q4H PRN Administration Moderate to Severe Pain (6-10) Albuterol Sulfate 2 puff 02/22/20 10:30 02/28/20 08:29 Albuterol 200 Puff (6.7gm Inhaler) INH 2 puff [id number] ELIOT Administration Albuterol Sulfate 2 puff 02/22/20 07:48 02/22/20 08:01 Albuterol 200 Puff (6.7gm Inhaler) INH 2 puff Q4H PRN Administration SOB &/or Wheezing Amlodipine Besylate 10 mg 02/24/20 09:00 02/28/20 08:28 Amlodipine 10 Mg Tab PO 10 mg DAILY ELIOT Administration Ascorbic Acid 1,000 mg 02/22/20 09:00 02/28/20 08:28 Ascorbic Acid 500 Mg Chewable Tablet PO 1,000 mg DAILY ELIOT Administration Atorvastatin Calcium 20 mg 02/24/20 21:00 02/27/20 20:24 Atorvastatin Calcium 20 Mg Tab PO 20 mg HS ELIOT Administration Cholecalciferol 400 units 02/22/20 09:00 02/28/20 08:28 Cholecalciferol (Vitamin D3) 400 Units Tab PO 400 units DAILY ELIOT Administration Dexamethasone 6 mg 02/24/20 21:00 02/28/20 08:29 Dexamethasone 4 Mg/Ml Vial SLOW IVP 6 mg BID ELIOT Administration Enoxaparin Sodium 40 mg 02/26/20 21:00 02/28/20 08:27 Enoxaparin Sodium 40 Mg/0.4 Ml Syringe SC 40 mg BID ELIOT Administration Finasteride 5 mg 02/24/20 09:00 02/28/20 08:28 Finasteride 5 Mg Tab PO 5 mg DAILY ELIOT Administration Gabapentin 300 mg 02/23/20 21:00 02/28/20 08:28 Gabapentin 300 Mg Cap PO 300 mg TID ELIOT Administration Hydralazine HCl 10 mg 02/22/20 09:59 02/22/20 14:44 Hydralazine 20 Mg/Ml Vial SLOW IVP 10 mg Q4H PRN Administration Persistent BP Elevations Hydrochlorothiazide 12.5 mg 02/24/20 09:00 02/28/20 08:28 Hydrochlorothiazide 25 Mg Tab PO 12.5 mg DAILY ELIOT Administration Ibuprofen 600 mg 02/23/20 10:58 02/28/20 08:31 Ibuprofen 600 Mg Tab PO 600 mg Q6H PRN Administration Fever > 101 Insulin Human Lispro 0 units 02/22/20 02:51 02/28/20 13:09 Humalog 300 Units/3 Ml Vial SC 4 unit .MILD SLIDING SCALE PRN Administration Mild Correctional Scale Lorazepam 0.5 mg 02/26/20 09:39 02/27/20 13:49 Lorazepam 0.5 Mg Tab PO 0.5 mg Q4H PRN Administration Anxiety Ondansetron HCl 4 mg 02/23/20 16:44 02/28/20 08:31 Ondansetron Pf 4 Mg/2 Ml Vial IVP 4 mg Q6H PRN Administration Nausea/Vomiting Zinc Sulfate 220 mg 02/22/20 09:00 02/28/20 08:28 Zinc Sulfate 220 Mg Cap PO 220 mg DAILY ELIOT Administration Zolpidem Tartrate 10 mg 02/23/20 21:00 02/27/20 20:24 Zolpidem Tartrate 5 Mg Tab PO 10 mg HS ELIOT Administration - Exam General Appearance: awake alert Eye: PERRL, anicteric sclera ENT: no oropharyngeal lesions, moist mucosa Neck: supple, no JVD Heart: RRR, no murmur Respiratory: no wheezes, no rales, rhonchi Gastrointestinal: soft, non-tender, non-distended, normal bowel sounds Extremities: no cyanosis, no edema Neurological: cranial nerve grossly intact, no focal deficits Psychiatric: normal affect, A&O x 3 Hosp A/P (1) Pneumonia due to COVID-19 virus Code(s): U07.1 - COVID-19; J12.82 - PNEUMONIA DUE TO CORONAVIRUS DISEASE 2018 Status: Acute (2) Acute respiratory failure with hypoxia Code(s): J96.01 - ACUTE RESPIRATORY FAILURE WITH HYPOXIA Status: Acute (3) DM type 2 (diabetes mellitus, type 2) Status: Chronic Qualifiers: Diabetes mellitus joint terminal attack controller insulin use: without joint terminal attack controller use (4) JOSEFINA (acute kidney injury) Code(s): N17.9 - ACUTE KIDNEY FAILURE, UNSPECIFIED Status: Resolved (5) HTN (hypertension) Code(s): I10 - ESSENTIAL (PRIMARY) HYPERTENSION Status: Chronic Qualifiers: Hypertension type: essential hypertension Qualified Code(s): I10 - Essential (primary) hypertension (6) Dyslipidemia Code(s): E78.5 - HYPERLIPIDEMIA, UNSPECIFIED Status: Chronic (7) Obesity (BMI 30-39.9) Code(s): E66.9 - OBESITY, UNSPECIFIED Status: Chronic - Plan is on nasal canula O2, dexamethasone, alb inh continue norvasc, lipitor, hctz, proscar, neurontin had creatinine of 3 on admission which is at baseline now dc plan home with HH with nursing and home O2 hemostable he lives with his father
[2020-02-28] MEDS: Acetaminophen 325 MG TAB PO PRN (17:49)
[2020-02-28] MEDS: Atorvastatin Calcium 20 MG TAB PO SCH (20:23)
[2020-02-28] MEDS: Zolpidem Tartrate 5 MG TAB PO SCH (20:23)
[2020-02-29] MEDS: Albuterol 200 PUFF (6.7GM INHALER) INH SCH ×6 (02:00→21:04)
[2020-02-29] MEDS: HumaLOG 300 UNITS/3 ML VIAL SC PRN ×4 (05:34→20:43)
[2020-02-29] MEDS: Dexamethasone 4 mg/ml Vial SLOW IVP SCH ×2 (08:58→20:33)
[2020-02-29] MEDS: Enoxaparin Sodium 40 MG/0.4 ML SYRINGE SC SCH ×2 (08:58→20:34)
[2020-02-29] MEDS: Zinc Sulfate 220 MG CAP PO SCH (08:59)
[2020-02-29] MEDS: Finasteride 5 MG TAB PO SCH (08:59)
[2020-02-29] MEDS: Hydrochlorothiazide 25 MG TAB PO SCH (08:59)
[2020-02-29] MEDS: Amlodipine 10 MG TAB PO SCH (08:59)
[2020-02-29] MEDS: Acetaminophen 325 MG TAB PO PRN (08:59)
[2020-02-29] MEDS: HYDROcodone/Acetaminophen 5/325 mg Tablet PO PRN (08:59)
[2020-02-29] MEDS: Ascorbic Acid 500 mg Chewable Tablet PO SCH (09:00)
[2020-02-29] MEDS: Lorazepam 0.5 MG TAB PO PRN ×2 (09:00→20:43)
[2020-02-29] MEDS: Cholecalciferol (Vitamin D3) 400 UNITS TAB PO SCH (09:00)
[2020-02-29] MEDS: Ondansetron PF 4 MG/2 ML Vial IVP PRN (09:00)
[2020-02-29] MEDS: Gabapentin 300 MG CAP PO SCH ×3 (09:00→20:34)
[2020-02-29 09:16] LABS: Band 2 % (5-11); Hemoglobin 16.4 g/dL (14.0-18.0); Lymphocytes 10 % (21-51); MDiff Complete? YES; Mean Corpuscular HGB CONC 33.1 g/dL (32.0-36.0); Mean Corpuscular Hemoglobin 29.8 pg (27.0-31.0); Mean Corpuscular Volume 90.1 fL (78.0-98.0); Mean Platelet Volume 8.2 fL (7.4-10.4); Monocytes 8 % (0-10); Neutrophil 80 % (42-75); Platelet Count 327 thou/uL (130-400); Platelet Morphology Comment Appears Adequate; RBC Distribution Width 12.5 % (11.5-14.5); RBC Morphology Normal; Red Blood Cell (RBC) Count 5.49 mill/uL (4.70-6.10); White Blood Cell (WBC) Count 14.9 thou/uL (4.8-10.8)
[2020-02-29 12:03] LABS: Anion Gap 17 mmol/L (10-20); BUN (Urea Nitrogen) 17 mg/dL (8.4-25.7); CRP (Inflammatory) 6.96 mg/dL (= or < 0.5); Calc. Creatinine Clearance 164 mL/min (70-130); Calcium 8.9 mg/dL (7.8-10.44); Carbon Dioxide 23 mmol/L (22-29); Chloride 97 mmol/L (98-107); Glucose 197 mg/dL (70-105); Potassium 4.7 mmol/L (3.5-5.1); Sodium 132 mmol/L (136-145)
--- NOTE | 2020-02-29 14:50 | PDOC.HOSPP ---
- Subjective Encounter Date: 02/29/20 Encounter Time: 09:40 Subjective: no new complaints is comfortable on nasal canula is amb in room - Objective Vital Signs & Weight: Vital Signs (12 hours) Temp Pulse Resp BP Pulse Ox 02/29/20 11:59 98.8 F 107 H 16 148/102 H 91 L 02/29/20 08:59 113 H 02/29/20 08:00 97.5 F L 113 H 17 149/105 H 94 L 02/29/20 04:00 93 L Weight Weight 272 lb 7.861 oz Most Recent Monitor Data Heart Rate from ECG 101 NIBP 162/102 Result Diagrams: 02/29/20 06:19 02/29/20 11:34 Additional Labs: Accuchecks 02/29/20 02/29/20 02/28/20 12:02 05:22 20:45 POC Glucose 201 H 202 H 213 H 02/28/20 16:10 POC Glucose 231 H Hospitalist ROS - Medication Medications: Active Medications Generic Name Dose Route Start Last Admin Trade Name Freq PRN Reason Stop Dose Admin Acetaminophen 650 mg 02/23/20 10:54 02/29/20 08:59 Acetaminophen 325 Mg Tab PO 650 mg Q6H PRN Administration Mild-Moderate Pain (1-5) Hydrocodone Bitart/Acetaminophen 1 tab 02/22/20 12:49 02/29/20 08:59 Hydrocodone/Acetaminophen 5/325 Mg Tablet PO 1 tab Q4H PRN Administration Moderate to Severe Pain (6-10) Albuterol Sulfate 2 puff 02/22/20 10:30 02/29/20 09:01 Albuterol 200 Puff (6.7gm Inhaler) INH 2 puff [id number] ELIOT Administration Albuterol Sulfate 2 puff 02/22/20 07:48 02/22/20 08:01 Albuterol 200 Puff (6.7gm Inhaler) INH 2 puff Q4H PRN Administration SOB &/or Wheezing Amlodipine Besylate 10 mg 02/24/20 09:00 02/29/20 08:59 Amlodipine 10 Mg Tab PO 10 mg DAILY ELIOT Administration Ascorbic Acid 1,000 mg 02/22/20 09:00 02/29/20 09:00 Ascorbic Acid 500 Mg Chewable Tablet PO 1,000 mg DAILY ELIOT Administration Atorvastatin Calcium 20 mg 02/24/20 21:00 02/28/20 20:23 Atorvastatin Calcium 20 Mg Tab PO 20 mg HS ELIOT Administration Cholecalciferol 400 units 02/22/20 09:00 02/29/20 09:00 Cholecalciferol (Vitamin D3) 400 Units Tab PO 400 units DAILY ELIOT Administration Dexamethasone 6 mg 02/24/20 21:00 02/29/20 08:58 Dexamethasone 4 Mg/Ml Vial SLOW IVP 6 mg BID ELIOT Administration Enoxaparin Sodium 40 mg 02/26/20 21:00 02/29/20 08:58 Enoxaparin Sodium 40 Mg/0.4 Ml Syringe SC 40 mg BID ELIOT Administration Finasteride 5 mg 02/24/20 09:00 02/29/20 08:59 Finasteride 5 Mg Tab PO 5 mg DAILY ELIOT Administration Gabapentin 300 mg 02/23/20 21:00 02/29/20 09:00 Gabapentin 300 Mg Cap PO 300 mg TID ELIOT Administration Hydralazine HCl 10 mg 02/22/20 09:59 02/22/20 14:44 Hydralazine 20 Mg/Ml Vial SLOW IVP 10 mg Q4H PRN Administration Persistent BP Elevations Hydrochlorothiazide 12.5 mg 02/24/20 09:00 02/29/20 08:59 Hydrochlorothiazide 25 Mg Tab PO 12.5 mg DAILY ELIOT Administration Ibuprofen 600 mg 02/23/20 10:58 02/28/20 08:31 Ibuprofen 600 Mg Tab PO 600 mg Q6H PRN Administration Fever > 101 Insulin Human Lispro 0 units 02/22/20 02:51 02/29/20 05:34 Humalog 300 Units/3 Ml Vial SC 3 unit .MILD SLIDING SCALE PRN Administration Mild Correctional Scale Lorazepam 0.5 mg 02/26/20 09:39 02/29/20 09:00 Lorazepam 0.5 Mg Tab PO 0.5 mg Q4H PRN Administration Anxiety Ondansetron HCl 4 mg 02/23/20 16:44 02/29/20 09:00 Ondansetron Pf 4 Mg/2 Ml Vial IVP 4 mg Q6H PRN Administration Nausea/Vomiting Zinc Sulfate 220 mg 02/22/20 09:00 02/29/20 08:59 Zinc Sulfate 220 Mg Cap PO 220 mg DAILY ELIOT Administration Zolpidem Tartrate 10 mg 02/23/20 21:00 02/28/20 20:23 Zolpidem Tartrate 5 Mg Tab PO 10 mg HS ELIOT Administration - Exam General Appearance: awake alert Eye: PERRL, anicteric sclera ENT: no oropharyngeal lesions, moist mucosa Neck: supple, no JVD Heart: RRR, no murmur Respiratory: no wheezes, no rales, rhonchi Gastrointestinal: soft, non-tender, non-distended, normal bowel sounds Extremities: no cyanosis, no edema Neurological: cranial nerve grossly intact, no focal deficits Psychiatric: normal affect, A&O x 3 Hosp A/P (1) Pneumonia due to COVID-19 virus Code(s): U07.1 - COVID-19; J12.82 - PNEUMONIA DUE TO CORONAVIRUS DISEASE 2018 Status: Acute (2) Acute respiratory failure with hypoxia Code(s): J96.01 - ACUTE RESPIRATORY FAILURE WITH HYPOXIA Status: Acute (3) DM type 2 (diabetes mellitus, type 2) Status: Chronic Qualifiers: 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: without fpc use (4) JOSEFINA (acute kidney injury) Code(s): N17.9 - ACUTE KIDNEY FAILURE, UNSPECIFIED Status: Resolved (5) HTN (hypertension) Code(s): I10 - ESSENTIAL (PRIMARY) HYPERTENSION Status: Chronic Qualifiers: Hypertension type: essential hypertension Qualified Code(s): I10 - Essential (primary) hypertension (6) Dyslipidemia Code(s): E78.5 - HYPERLIPIDEMIA, UNSPECIFIED Status: Chronic (7) Obesity (BMI 30-39.9) Code(s): E66.9 - OBESITY, UNSPECIFIED Status: Chronic - Plan is on nasal canula O2, dexamethasone, alb inh continue norvasc, lipitor, hctz, proscar, neurontin had creatinine of 3 on admission which is at baseline now, was not given remdesivir due to josefina on admission dc plan home with HH with nursing and home O2 in am. hemostable he lives with his father
[2020-02-29] MEDS: hydrALAZINE 20 MG/ML VIAL SLOW IVP PRN (18:13)
[2020-02-29] MEDS: Atorvastatin Calcium 20 MG TAB PO SCH (20:34)
[2020-02-29] MEDS: Zolpidem Tartrate 5 MG TAB PO SCH (20:34)
[2020-03-01] MEDS: Albuterol 200 PUFF (6.7GM INHALER) INH SCH ×6 (02:25→21:41)
[2020-03-01] MEDS: HYDROcodone/Acetaminophen 5/325 mg Tablet PO PRN ×2 (02:36→21:42)
[2020-03-01] MEDS: Lorazepam 0.5 MG TAB PO PRN (02:45)
[2020-03-01] MEDS: HumaLOG 300 UNITS/3 ML VIAL SC PRN ×3 (05:53→16:41)
--- NOTE | 2020-03-01 07:26 | RAD ---
Exam: Chest one view HISTORY:COVID pneumonia. Follow-up exam. Comparison: 02/21/2020 FINDINGS: Cardiac silhouette: Normal Aorta: Unremarkable Pulmonary vessels: Normal Costophrenic angles: Clear LUNGS: Interval development of multifocal interstitial and alveolar opacities. Pneumothorax: None Osseous abnormalities: None IMPRESSION: Interval worsening multi lobar COVID pneumonia.
[2020-03-01] MEDS: Ascorbic Acid 500 mg Chewable Tablet PO SCH (08:35)
[2020-03-01] MEDS: Cholecalciferol (Vitamin D3) 400 UNITS TAB PO SCH (08:35)
[2020-03-01] MEDS: Amlodipine 10 MG TAB PO SCH (08:35)
[2020-03-01] MEDS: Hydrochlorothiazide 25 MG TAB PO SCH (08:35)
[2020-03-01] MEDS: Finasteride 5 MG TAB PO SCH (08:36)
[2020-03-01] MEDS: Zinc Sulfate 220 MG CAP PO SCH (08:36)
[2020-03-01] MEDS: Dexamethasone 4 mg/ml Vial SLOW IVP SCH ×2 (08:36→21:36)
[2020-03-01] MEDS: Enoxaparin Sodium 40 MG/0.4 ML SYRINGE SC SCH ×2 (08:36→21:39)
[2020-03-01] MEDS: Gabapentin 300 MG CAP PO SCH ×3 (08:37→21:40)
--- NOTE | 2020-03-01 15:00 | PDOC.HOSPP ---
- Subjective Encounter Date: 03/01/20 Encounter Time: 09:25 Subjective: c/o sob and weakness - Objective Vital Signs & Weight: Vital Signs (12 hours) Temp Pulse Resp BP BP Pulse Ox 03/01/20 12:30 120 H 2 L 94 L 03/01/20 11:50 98.0 F 111 H 30 H 134/89 93 L 03/01/20 08:40 101 H 36 H 94 L 03/01/20 08:30 114 H 36 H 91 L 03/01/20 08:00 98.9 F 116 H 20 154/88 H 91 L 03/01/20 03:24 98.8 F 107 H 25 H 142/91 H 94 L Weight Weight 272 lb 7.861 oz Most Recent Monitor Data Heart Rate from ECG 101 NIBP 162/102 I&O: 02/29/20 03/01/20 03/02/20 06:59 06:59 06:59 Intake Total 770 Balance 770 Result Diagrams: 02/29/20 06:19 02/29/20 11:34 Additional Labs: Accuchecks 03/01/20 03/01/20 02/29/20 10:54 03:15 20:39 POC Glucose 173 H 224 H 215 H 02/29/20 02/28/20 02/26/20 16:45 12:10 20:59 POC Glucose 223 H 228 H 170 H Hospitalist ROS - Medication Medications: Active Medications Generic Name Dose Route Start Last Admin Trade Name Freq PRN Reason Stop Dose Admin Acetaminophen 650 mg 02/23/20 10:54 02/29/20 08:59 Acetaminophen 325 Mg Tab PO 650 mg Q6H PRN Administration Mild-Moderate Pain (1-5) Hydrocodone Bitart/Acetaminophen 1 tab 02/22/20 12:49 03/01/20 02:36 Hydrocodone/Acetaminophen 5/325 Mg Tablet PO 1 tab Q4H PRN Administration Moderate to Severe Pain (6-10) Albuterol Sulfate 2 puff 02/22/20 10:30 03/01/20 09:20 Albuterol 200 Puff (6.7gm Inhaler) INH 2 puff [id number] ELIOT Administration Albuterol Sulfate 2 puff 02/22/20 07:48 02/22/20 08:01 Albuterol 200 Puff (6.7gm Inhaler) INH 2 puff Q4H PRN Administration SOB &/or Wheezing Amlodipine Besylate 10 mg 02/24/20 09:00 03/01/20 08:35 Amlodipine 10 Mg Tab PO 10 mg DAILY ELIOT Administration Ascorbic Acid 1,000 mg 02/22/20 09:00 03/01/20 08:35 Ascorbic Acid 500 Mg Chewable Tablet PO 1,000 mg DAILY ELIOT Administration Atorvastatin Calcium 20 mg 02/24/20 21:00 02/29/20 20:34 Atorvastatin Calcium 20 Mg Tab PO 20 mg HS ELIOT Administration Cholecalciferol 400 units 02/22/20 09:00 03/01/20 08:35 Cholecalciferol (Vitamin D3) 400 Units Tab PO 400 units DAILY ELIOT Administration Dexamethasone 6 mg 02/24/20 21:00 03/01/20 08:36 Dexamethasone 4 Mg/Ml Vial SLOW IVP 6 mg BID ELIOT Administration Enoxaparin Sodium 40 mg 02/26/20 21:00 03/01/20 08:36 Enoxaparin Sodium 40 Mg/0.4 Ml Syringe SC 40 mg BID ELIOT Administration Finasteride 5 mg 02/24/20 09:00 03/01/20 08:36 Finasteride 5 Mg Tab PO 5 mg DAILY ELIOT Administration Gabapentin 300 mg 02/23/20 21:00 03/01/20 08:37 Gabapentin 300 Mg Cap PO 300 mg TID ELIOT Administration Hydralazine HCl 10 mg 02/22/20 09:59 02/29/20 18:13 Hydralazine 20 Mg/Ml Vial SLOW IVP 10 mg Q4H PRN Administration Persistent BP Elevations Hydrochlorothiazide 12.5 mg 02/24/20 09:00 03/01/20 08:35 Hydrochlorothiazide 25 Mg Tab PO 12.5 mg DAILY ELIOT Administration Ibuprofen 600 mg 02/23/20 10:58 02/28/20 08:31 Ibuprofen 600 Mg Tab PO 600 mg Q6H PRN Administration Fever > 101 Insulin Human Lispro 0 units 02/22/20 02:51 03/01/20 11:39 Humalog 300 Units/3 Ml Vial SC 2 unit .MILD SLIDING SCALE PRN Administration Mild Correctional Scale Lorazepam 0.5 mg 02/26/20 09:39 03/01/20 02:45 Lorazepam 0.5 Mg Tab PO 0.5 mg Q4H PRN Administration Anxiety Ondansetron HCl 4 mg 02/23/20 16:44 02/29/20 09:00 Ondansetron Pf 4 Mg/2 Ml Vial IVP 4 mg Q6H PRN Administration Nausea/Vomiting Zinc Sulfate 220 mg 02/22/20 09:00 03/01/20 08:36 Zinc Sulfate 220 Mg Cap PO 220 mg DAILY ELIOT Administration Zolpidem Tartrate 10 mg 02/23/20 21:00 02/29/20 20:34 Zolpidem Tartrate 5 Mg Tab PO 10 mg HS ELIOT Administration - Exam General Appearance: awake alert Eye: PERRL, anicteric sclera ENT: no oropharyngeal lesions, moist mucosa Neck: supple, no JVD Heart: RRR, no murmur Respiratory: no wheezes, rales, rhonchi Gastrointestinal: soft, non-tender, non-distended, normal bowel sounds Extremities: no cyanosis, no edema Neurological: cranial nerve grossly intact, no focal deficits Psychiatric: A&O x 3 Hosp A/P (1) Pneumonia due to COVID-19 virus Code(s): U07.1 - COVID-19; J12.82 - PNEUMONIA DUE TO CORONAVIRUS DISEASE 2019 Status: Acute (2) Acute respiratory failure with hypoxia Code(s): J96.01 - ACUTE RESPIRATORY FAILURE WITH HYPOXIA Status: Acute (3) DM type 2 (diabetes mellitus, type 2) Status: Chronic Qualifiers: Diabetes mellitus hospital pharmacy technician insulin use: without usp use (4) JOSEFINA (acute kidney injury) Code(s): N17.9 - ACUTE KIDNEY FAILURE, UNSPECIFIED Status: Resolved (5) HTN (hypertension) Code(s): I10 - ESSENTIAL (PRIMARY) HYPERTENSION Status: Chronic Qualifiers: Hypertension type: essential hypertension Qualified Code(s): I10 - Essential (primary) hypertension (6) Dyslipidemia Code(s): E78.5 - HYPERLIPIDEMIA, UNSPECIFIED Status: Chronic (7) Obesity (BMI 30-39.9) Code(s): E66.9 - OBESITY, UNSPECIFIED Status: Chronic - Plan is on nasal canula O2, dexamethasone, alb inh continue norvasc, lipitor, hctz, proscar, neurontin had creatinine of 3 on admission which is at baseline now, was not given remdesivir due to josefina on admission dc plan home with HH with nursing and home O2 in am if he remains stable with no tachypnea. hemostable he lives with his father d/w his neice over phone Ms.Capri Kumar [phone] and gave an update, they will help him on dc.
[2020-03-01] MEDS: Atorvastatin Calcium 20 MG TAB PO SCH (21:36)
[2020-03-01] MEDS: Zolpidem Tartrate 5 MG TAB PO SCH (21:41)
[2020-03-02] MEDS: Albuterol 200 PUFF (6.7GM INHALER) INH SCH ×6 (02:24→21:43)
[2020-03-02] MEDS: HumaLOG 300 UNITS/3 ML VIAL SC PRN ×4 (06:28→21:43)
[2020-03-02] MEDS: Gabapentin 300 MG CAP PO SCH ×3 (09:08→21:40)
[2020-03-02] MEDS: Cholecalciferol (Vitamin D3) 400 UNITS TAB PO SCH (09:08)
[2020-03-02] MEDS: Hydrochlorothiazide 25 MG TAB PO SCH (09:08)
[2020-03-02] MEDS: Ascorbic Acid 500 mg Chewable Tablet PO SCH (09:08)
[2020-03-02] MEDS: Dexamethasone 4 mg/ml Vial SLOW IVP SCH ×2 (09:09→21:41)
[2020-03-02] MEDS: Amlodipine 10 MG TAB PO SCH (09:09)
[2020-03-02] MEDS: Finasteride 5 MG TAB PO SCH (09:09)
[2020-03-02] MEDS: Enoxaparin Sodium 40 MG/0.4 ML SYRINGE SC SCH ×2 (09:11→21:42)
[2020-03-02] MEDS: Zinc Sulfate 220 MG CAP PO SCH (09:11)
[2020-03-02] MEDS: HYDROcodone/Acetaminophen 5/325 mg Tablet PO PRN ×2 (09:47→16:37)
[2020-03-02] MEDS ORDERED: Sodium Chloride 0.65% Nasal 44 ML BOT EA NARE PRN (12:47)
--- NOTE | 2020-03-02 15:17 | PDOC.HOSPP ---
- Subjective Encounter Date: 03/02/20 Encounter Time: 08:30 Subjective: is breathing better than yesterday, resp rate around 20/min is amb in room with nasal canula which is lodged in front of his nares - Objective Vital Signs & Weight: Vital Signs (12 hours) Temp Pulse Resp BP BP Pulse Ox 03/02/20 12:55 97.9 F 111 H 20 137/85 95 03/02/20 09:25 102 H 20 91 L 03/02/20 08:00 98.9 F 108 H 25 H 138/95 H 94 L 03/02/20 04:00 98.5 F 105 H 105 H 143/98 H 100 Weight Admit Weight 272 lb 8 oz Weight 272 lb 7.861 oz Most Recent Monitor Data Heart Rate from ECG 101 NIBP 162/102 I&O: 03/01/20 03/02/20 03/03/20 06:59 06:59 06:59 Intake Total 770 1180 Output Total 1575 Balance 770 -395 Result Diagrams: 02/29/20 06:19 02/29/20 11:34 Additional Labs: Accuchecks 03/02/20 03/02/20 03/01/20 12:51 06:12 21:36 POC Glucose 190 H 223 H 190 H 03/01/20 16:12 POC Glucose 170 H Hospitalist ROS - Medication Medications: Active Medications Generic Name Dose Route Start Last Admin Trade Name Freq PRN Reason Stop Dose Admin Acetaminophen 650 mg 02/23/20 10:54 02/29/20 08:59 Acetaminophen 325 Mg Tab PO 650 mg Q6H PRN Administration Mild-Moderate Pain (1-5) Hydrocodone Bitart/Acetaminophen 1 tab 02/22/20 12:49 03/02/20 09:47 Hydrocodone/Acetaminophen 5/325 Mg Tablet PO 1 tab Q4H PRN Administration Moderate to Severe Pain (6-10) Albuterol Sulfate 2 puff 02/22/20 10:30 03/02/20 14:10 Albuterol 200 Puff (6.7gm Inhaler) INH 2 puff [id number] ELIOT Administration Albuterol Sulfate 2 puff 02/22/20 07:48 02/22/20 08:01 Albuterol 200 Puff (6.7gm Inhaler) INH 2 puff Q4H PRN Administration SOB &/or Wheezing Amlodipine Besylate 10 mg 02/24/20 09:00 03/02/20 09:09 Amlodipine 10 Mg Tab PO 10 mg DAILY ELIOT Administration Ascorbic Acid 1,000 mg 02/22/20 09:00 03/02/20 09:08 Ascorbic Acid 500 Mg Chewable Tablet PO 1,000 mg DAILY ELIOT Administration Atorvastatin Calcium 20 mg 02/24/20 21:00 03/01/20 21:36 Atorvastatin Calcium 20 Mg Tab PO 20 mg HS ELIOT Administration Cholecalciferol 400 units 02/22/20 09:00 03/02/20 09:08 Cholecalciferol (Vitamin D3) 400 Units Tab PO 400 units DAILY ELIOT Administration Dexamethasone 6 mg 02/24/20 21:00 03/02/20 09:09 Dexamethasone 4 Mg/Ml Vial SLOW IVP 6 mg BID ELIOT Administration Enoxaparin Sodium 40 mg 02/26/20 21:00 03/02/20 09:11 Enoxaparin Sodium 40 Mg/0.4 Ml Syringe SC 40 mg BID ELIOT Administration Finasteride 5 mg 02/24/20 09:00 03/02/20 09:09 Finasteride 5 Mg Tab PO 5 mg DAILY ELIOT Administration Gabapentin 300 mg 02/23/20 21:00 03/02/20 14:10 Gabapentin 300 Mg Cap PO 300 mg TID ELIOT Administration Hydralazine HCl 10 mg 02/22/20 09:59 02/29/20 18:13 Hydralazine 20 Mg/Ml Vial SLOW IVP 10 mg Q4H PRN Administration Persistent BP Elevations Hydrochlorothiazide 12.5 mg 02/24/20 09:00 03/02/20 09:08 Hydrochlorothiazide 25 Mg Tab PO 12.5 mg DAILY ELIOT Administration Ibuprofen 600 mg 02/23/20 10:58 02/28/20 08:31 Ibuprofen 600 Mg Tab PO 600 mg Q6H PRN Administration Fever > 101 Insulin Human Lispro 0 units 02/22/20 02:51 03/02/20 13:13 Humalog 300 Units/3 Ml Vial SC 2 unit .MILD SLIDING SCALE PRN Administration Mild Correctional Scale Lorazepam 0.5 mg 02/26/20 09:39 03/01/20 02:45 Lorazepam 0.5 Mg Tab PO 0.5 mg Q4H PRN Administration Anxiety Ondansetron HCl 4 mg 02/23/20 16:44 02/29/20 09:00 Ondansetron Pf 4 Mg/2 Ml Vial IVP 4 mg Q6H PRN Administration Nausea/Vomiting Sodium Chloride 0 ml 03/02/20 12:47 03/02/20 14:21 Sodium Chloride 0.65% Nasal 44 Ml Bot EA NARE 1 spr Q8H PRN Administration Nasal Dryness Zinc Sulfate 220 mg 02/22/20 09:00 03/02/20 09:11 Zinc Sulfate 220 Mg Cap PO 220 mg DAILY ELIOT Administration Zolpidem Tartrate 10 mg 02/23/20 21:00 03/01/20 21:41 Zolpidem Tartrate 5 Mg Tab PO 10 mg HS ELIOT Administration - Exam General Appearance: awake alert Eye: PERRL, anicteric sclera ENT: no oropharyngeal lesions, moist mucosa Neck: supple, no JVD Heart: RRR, no murmur Respiratory: no wheezes, rales, rhonchi Gastrointestinal: soft, non-tender, non-distended, normal bowel sounds Extremities: no cyanosis, no edema Neurological: cranial nerve grossly intact, no focal deficits Psychiatric: A&O x 3 Hosp A/P (1) Pneumonia due to COVID-19 virus Code(s): U07.1 - COVID-19; J12.82 - PNEUMONIA DUE TO CORONAVIRUS DISEASE 2019 Status: Acute (2) Acute respiratory failure with hypoxia Code(s): J96.01 - ACUTE RESPIRATORY FAILURE WITH HYPOXIA Status: Acute (3) DM type 2 (diabetes mellitus, type 2) Status: Chronic Qualifiers: Diabetes mellitus exterminator helper termite insulin use: without alf use (4) JOSEFINA (acute kidney injury) Code(s): N17.9 - ACUTE KIDNEY FAILURE, UNSPECIFIED Status: Resolved (5) HTN (hypertension) Code(s): I10 - ESSENTIAL (PRIMARY) HYPERTENSION Status: Chronic Qualifiers: Hypertension type: essential hypertension Qualified Code(s): I10 - Essential (primary) hypertension (6) Dyslipidemia Code(s): E78.5 - HYPERLIPIDEMIA, UNSPECIFIED Status: Chronic (7) Obesity (BMI 30-39.9) Code(s): E66.9 - OBESITY, UNSPECIFIED Status: Chronic - Plan is on nasal canula O2, dexamethasone, alb inh, will add dulera inhaler as well. continue norvasc, lipitor, hctz, proscar, neurontin had creatinine of 3 on admission which is at baseline now, was not given remdesivir due to josefina on admission dc plan home with home O2 if his crp remains around 6 today and he feels comfortable going home. his father got hospitalized yesterday and is in room 235, sister recently here from covid, is a bit emotional from all of it. hemostable he lives with his father d/w his neice over phone Ms.Capri Kumar [phone] and gave an update, they will help him on dc.
[2020-03-02] MEDS: Zolpidem Tartrate 5 MG TAB PO SCH (21:40)
[2020-03-02] MEDS: Atorvastatin Calcium 20 MG TAB PO SCH (21:41)
[2020-03-03] MEDS: Albuterol 200 PUFF (6.7GM INHALER) INH SCH ×2 (05:35→10:05)
[2020-03-03] MEDS: HumaLOG 300 UNITS/3 ML VIAL SC PRN ×2 (06:20→12:46)
[2020-03-03] MEDS: Gabapentin 300 MG CAP PO SCH (08:24)
[2020-03-03] MEDS: Hydrochlorothiazide 25 MG TAB PO SCH (08:24)
[2020-03-03] MEDS: Cholecalciferol (Vitamin D3) 400 UNITS TAB PO SCH (08:26)
[2020-03-03] MEDS: Enoxaparin Sodium 40 MG/0.4 ML SYRINGE SC SCH (08:26)
[2020-03-03] MEDS: Finasteride 5 MG TAB PO SCH (08:26)
[2020-03-03] MEDS: Ascorbic Acid 500 mg Chewable Tablet PO SCH (08:26)
[2020-03-03] MEDS: Dexamethasone 4 mg/ml Vial SLOW IVP SCH (08:26)
[2020-03-03] MEDS: Amlodipine 10 MG TAB PO SCH (08:26)
[2020-03-03] MEDS: Zinc Sulfate 220 MG CAP PO SCH (08:26)
[2020-03-03 08:41] LABS: #Eosinphils 0.1 thou/uL (0.0-0.7); #Lymphocytes 1.5 thou/uL (1.20-3.40); #Monocytes 0.5 thou/uL (0.11-0.59); #Neutrophils 12.6 thou/uL (1.40-6.50); %Basophils 0.2 % (0.0-1.0); %Eosinophils 0.7 % (0.0-10.0); %Lymphocytes 10.2 % (21.0-51.0); %Monocytes 3.6 % (0.0-10.0); %Neutrophils 85.3 % (42.0-75.0); Hemoglobin 16.4 g/dL (14.0-18.0); Mean Corpuscular HGB CONC 32.8 g/dL (32.0-36.0); Mean Corpuscular Hemoglobin 29.1 pg (27.0-31.0); Mean Corpuscular Volume 88.6 fL (78.0-98.0); Mean Platelet Volume 7.2 fL (7.4-10.4); Platelet Count 356 thou/uL (130-400); RBC Distribution Width 12.3 % (11.5-14.5); Red Blood Cell (RBC) Count 5.64 mill/uL (4.70-6.10); White Blood Cell (WBC) Count 14.8 thou/uL (4.8-10.8)
[2020-03-03 09:06] LABS: ALT (SGPT) 263 U/L (8-55); AST (SGOT) 52 U/L (5-34); Albumin 3.9 g/dL (3.5-5.0); Alkaline Phosphatase 180 U/L (40-110); Anion Gap 20 mmol/L (10-20); BUN (Urea Nitrogen) 20 mg/dL (8.4-25.7); Bilirubin, Total 1.3 mg/dL (0.2-1.2); Calc. Creatinine Clearance 142 mL/min (70-130); Calcium 9.2 mg/dL (7.8-10.44); Carbon Dioxide 20 mmol/L (22-29); Chloride 96 mmol/L (98-107); Globulin 4.3 g/dL (2.4-3.5); Glucose 219 mg/dL (70-105); Potassium 4.7 mmol/L (3.5-5.1); Protein, Total 8.2 g/dL (6.0-8.3); Sodium 130 mmol/L (136-145)
[2020-03-03] MEDS: Ibuprofen 600 MG TAB PO PRN (10:09)
[2020-03-03 12:12] VITALS: BP 134/94; TEMP 98
--- NOTE | 2020-03-03 17:38 | DIS ---
DATE OF ADMISSION: 02/21/2020 DATE OF DISCHARGE: 03/03/2020 DISCHARGE DISPOSITION: To home. PRIMARY DISCHARGE DIAGNOSES: COVID-19 pneumonia; acute respiratory failure with hypoxia; physical deconditioning; diabetes mellitus type 2; acute kidney injury on admission, resolved; hypertension; dyslipidemia; obesity. PROCEDURES DONE DURING HOSPITALIZATION: CT angio chest done on the 20 of February showed findings of nonspecific 4 mm pulmonary nodule in right upper lobe was seen. Left hip x-ray done showed no acute fracture. Blood cultures x2, no growth. H and H 16 and 49, platelet count 356, MCV 88. D-dimer 0.76 on admission. CRP was 3.74 on the , was 15 on the 24 of February. Ferritin was 365 on admission, going up to 1492 on the . BNP less than 10. BUN 20, creatinine 1.0. He has elevated LFTs. COVID-19 PCR was detected on 02/20/2020. DISCHARGE MEDICATIONS: 1. Atorvastatin 20 mg p.o. daily. 2. Finasteride 5 mg p.o. daily. 3. Gabapentin 300 mg p.o. three times daily. 4. Hydrochlorothiazide 12.5 mg p.o. daily. 5. Metformin 1000 mg twice daily. 6. Norvasc daily. 7. Omeprazole 40 mg daily. 8. Zolpidem 10 mg p.o. at bedtime. 9. DuoNeb q.6 hourly. 10. Motrin p.r.n. for pain. 11. Dexamethasone 6 mg p.o. daily for another 5 days. ALLERGIES: NO KNOWN DRUG ALLERGIES. DISCHARGE PLAN: The patient to follow up with primary care physician in 1 week. BRIEF COURSE DURING HOSPITALIZATION: The patient initially got admitted on the 21 of February with complaints of shortness of breath. Initial clinical exam and CT chest findings were consistent with COVID-19 pneumonia with acute respiratory failure. His initial saturations were 88%, which improved to 95% on 3 L oxygen. His inflammatory markers including CRP and ferritin were closely monitored. The patient had a creatinine of 3.0 on admission and was not a candidate for remdesivir administration. He has remained hemodynamically stable. Prior to discharge, he is ambulating in the room with nasal cannula oxygen. He is tolerating oral solid diet. He pretty much does not like hospital food, but is managing to eat them. His niece, Alise was also given updates for the patient's direction. His niece, nephews, and other family members will help him when he goes home today. Home oxygen is being arranged by Case Management from [facility]. The patient was counseled multiple times during his hospital stay to stay positive and to be active physically. He also has a tendency to remove his nasal cannula oxygen, which results in hypoxia. He has extensive infiltrates and has been counseled that he will require oxygen for the next 4 weeks and needs to be re-evaluated at the end of it by his primary care physician if he needs it further along. He is hemodynamically stable and will be shortly discharged home. Please note I have seen and examined the patient on the day of discharge. Job ID: [id number]
== END 2020-03-03 14:12 | disposition home or self-care (01) | DRG 177 ==
LOC: ERS 21:25 → ERHOLD 23:42 → T4-B 02-22 17:18
PROVIDERS: ADMIT Emergency Medicine; ATTEND Internal Medicine
PROC: 8E0ZXY6 Isolation (ICD-10-PCS; principal; 2020-02-21)
PROC: XW13325 Transfusion of Convalescent Plasma (Nonautologous) into Peripheral Vein, Percutaneous Approach, New Technology Group 5 (ICD-10-PCS; 2020-02-23)
DX: U07.1 COVID-19 (principal); J12.82 Pneumonia due to coronavirus disease 2019; J96.01 Acute respiratory failure with hypoxia; N17.9 Acute kidney failure, unspecified; E78.5 Hyperlipidemia, unspecified; E66.9 Obesity, unspecified; Z68.38 Body mass index [BMI] 38.0-38.9, adult; J45.909 Unspecified asthma, uncomplicated; E11.22 Type 2 diabetes mellitus with diabetic chronic kidney disease; I12.9 Hypertensive chronic kidney disease with stage 1 through stage 4 chronic kidney disease, or unspecified chronic kidney disease; N18.9 Chronic kidney disease, unspecified; N40.0 Benign prostatic hyperplasia without lower urinary tract symptoms; Z79.84 Long term (current) use of oral hypoglycemic drugs; Z79.899 Other long term (current) drug therapy; E87.6 Hypokalemia
CPT/HCPCS: 36415; 36416; 36430; 71045; 71275; 80048; 80053; 82550; 82728; 83605; 83735; 83880; 85025; 85379; 86140; 86850; 86900; 86901; 87040; 93005; 94760; 96365; 96367; 96375; J0360; J0456; J0696; J1100; J1650; J2405; J3480; J3490; J7050; P9017; Q9967